=== PATIENT | female | born 1955 | race Caucasian/White ===

== ENCOUNTER → 2016-02-27 | Outpatient (CLI) | payer BC ==
--- NOTE | 2016-02-28 10:10 | MM ---
Reason for exam: screening (asymptomatic). Last mammogram was performed 1 year and 6 months ago. History: Patient is postmenopausal. Benign excisional biopsy of the right breast. Physical Findings: A clinical breast exam by your physician is recommended on an annual basis and results should be correlated with mammographic findings. MG 3D Screening Mammo W/Cad Bilateral CC and MLO view(s) were taken. Prior study comparison: August 15, 2014, bilateral MG screening mammo w CAD. July 13, 2012, bilateral digital screening mammo w/CAD. There are scattered fibroglandular densities. Finding: There are typically benign regional and grouped calcifications in both breasts. No significant changes in finding since August 15, 2014 and July 13, 2012. ASSESSMENT: Benign, BI-RAD 2 RECOMMENDATION: Routine screening mammogram of both breasts in 1 year.
== END | disposition home or self-care (01) ==
LOC: RADMAMWWP 10:22
PROVIDERS: ATTEND Family Medicine
DX: Z12.31 Encounter for screening mammogram for malignant neoplasm of breast (principal)
CPT/HCPCS: 77063; G0202

== ENCOUNTER → 2016-04-30 | Outpatient (CLI) | payer BC ==
[2016-05-01 12:02] LABS: Alternaria alternata IgE <0.35 kU/L (<0.35); Asperg. fumagatus IgE <0.35 kU/L (<0.35); Asperg. fumagatus IgE Class CLASS 0; Cat Epith & Dander IgE <0.35 kU/L (<0.35); Cat Epith & Dander IgE Class CLASS 0; Clad herbarum IgE <0.35 kU/L (<0.35); Clad herbarum IgE Class CLASS 0; Com. Pigweed IgE <0.35 kU/L (<0.35); Com. Pigweed IgE Class CLASS 0; Common Ragweed IgE Class CLASS 0; Cow's Milk IgE Class CLASS 0; Dermato. farinae IgE <0.35 kU/L (<0.35); Dermato. farinae IgE Class CLASS 0; House Dust (Greer) IgE <0.35 kU/L (<0.35); House Dust (Greer) IgE Class CLASS 0; Maple (Box Elder) IgE <0.35 kU/L (<0.35); Maple (Box Elder) IgE Class CLASS 0; Penicillium notatum IgE Class CLASS 0; Timothy Grass IgE <0.35 kU/L (<0.35); Timothy Grass IgE Class CLASS 0
[2016-05-05 22:27] LABS: Cladosporium herbarium IgG 95.1 mcg/mL (< 14.7); Phoma ssp. IgG 3.2 mcg/mL (< 6.6); Saccaharomospora viridis Not detected (Not detected); Saccaharopoly. rectivirgula Not detected (Not detected)
== END | disposition home or self-care (01) ==
LOC: LABWHC1 12:58
PROVIDERS: ATTEND Internal Medicine Sleep Medicine
DX: B44.89 Other forms of aspergillosis (principal)
CPT/HCPCS: 36415; 82785; 86001; 86003; 86606; 86609

== ENCOUNTER → 2016-06-29 | Outpatient (CLI) | payer BC ==
--- NOTE | 2016-06-29 17:25 | CTL ---
EXAMINATION TYPE: CT Low Dose Lung DATE OF EXAM ORDERED: 06/29/2016 1:35 PM HISTORY: Initial. Lung cancer screening CT DLP: 75.[address] CTDI: 2.2 mGy Automated exposure control for dose reduction was used. SCREENING VISIT: Initial COMPARISON: None TECHNIQUE: Low dose computed tomography scan was performed through the chest at 1 mm thick sections a nd reconstructed images in the coronal plane at [address] DIAGNOSTIC QUALITY: Satisfactory FINDINGS: LUNG NODULES: None. LUNGS: COPD: Severity: None Fibrosis: Severity: None Lymph nodes: None Other findings: None RIGHT PLEURAL SPACE: Effusion: None Calcification: None Thickening: None Pneumothorax: None LEFT PLEURAL SPACE: Effusion: None Calcification: None unremarkable Thickening: None Pneumothorax: None HEART: Heart Size: None Coronary calcification: None Pericardial effusion: None OTHER FINDINGS: Upper abdomen: LAP-BAND is present. Bony thorax: Normal Supraclavicular region: Unremarkable Other: Ascending thoracic aorta is estimated at 3.4 cm AP dimension at the level of the main pulmonar y artery. The main pulmonary artery is estimated 2.8 cm. IMPRESSION: No suspicious changes to suggest neoplasm FOLLOW UP CT CHEST RECOMMENDATION: Screening per protocol CT LUNG RAD: Lung-Rad 1 Negative
== END | disposition home or self-care (01) ==
LOC: RADCTMAIN 13:05
PROVIDERS: ATTEND Internal Medicine Sleep Medicine
DX: Z12.2 Encounter for screening for malignant neoplasm of respiratory organs (principal); F17.200 Nicotine dependence, unspecified, uncomplicated

== ENCOUNTER → 2017-08-18 | Outpatient (CLI) | payer BC ==
--- NOTE | 2017-08-19 15:17 | MM ---
Reason for exam: screening (asymptomatic). Last mammogram was performed 1 year and 6 months ago. History: Patient is postmenopausal. Benign excisional biopsy of the right breast. Physical Findings: A clinical breast exam by your physician is recommended on an annual basis and results should be correlated with mammographic findings. MG Screening Mammo w CAD Bilateral CC and MLO view(s) were taken. Technologist: Mary Alice Garcia RT (R)(M) Prior study comparison: February 27, 2016, bilateral MG 3d screening mammo w/cad. August 15, 2014, bilateral MG screening mammo w CAD. The breast tissue is heterogeneously dense. This may lower the sensitivity of mammography. Finding: There are typically benign dystrophic, round, diffuse/scattered and grouped calcifications in both breasts, greater in the right breast. There is no discrete abnormality. ASSESSMENT: Benign, BI-RAD 2 RECOMMENDATION: Routine screening mammogram of both breasts in 1 year.
== END | disposition home or self-care (01) ==
LOC: RADMAMWWP 08:37
PROVIDERS: ATTEND Family Medicine
DX: Z12.31 Encounter for screening mammogram for malignant neoplasm of breast (principal)
CPT/HCPCS: 77067

== ENCOUNTER → 2017-09-27 | Outpatient (CLI) | payer BC ==
[2017-09-27 15:52] VITALS: BP 107/72; PULSE 76; RESP 20; TEMP 97.8
--- NOTE | 2017-09-27 16:42 | P.HPBAR ---
Bariatric H&P - History & Physicial H&P Date: 09/27/17 History & Physicial: Visit/CC: wants a fill Patient initial contact: Initial weight: 86.409 kg Initial weight in pounds: 190.50 Height: 5 ft 6.75 in Initial BMI: 30.0 Last weight: Current weight: 86.409 kg Current weight in pounds: 190.50 Current BMI: 30.0 [place] body weight (based on NIH guidelines): 60.668 kg Excess body weight loss: 0.0% The patient is a 62 year-old F who presents for Bariatric Assessment. Patient presents today for lab band follow up. She's not been seen several years. The patient states that she has gained weight. She is requesting a fill. Past Medical History Past Medical History: Hyperlipidemia History of Any Multi-Drug Resistant Organisms: None Reported Past Surgical History: Bariatric Surgery, Section Additional Past Surgical History / Comment(s): lap band 2009 Past Anesthesia/Blood Transfusion Reactions: No Reported Reaction Smoking Status: Current every day smoker Surgical - Exam Vital Signs Temp Pulse Resp BP 97.8 F 76 20 107/72 09/27/17 15:46 09/27/17 15:46 09/27/17 15:46 09/27/17 15:46 - General well developed, well nourished - Abdomen Abdomen: soft, non tender Bariatric Assessment & Plan Plan: The patient's lap band was adjusted. She appeared to have no fluid in the band. She's not sure if she had fluid before. 4 mL was added to her band. She 'll follow-up in one month for recheck. She may have a small leak of her band system. Bariatric Checklist Checklist: Plan: Checklist: EGD: 1. Hiatal hernia: 2. H. Pylori: HgbA1c: Vitamin D: Smoking: Current every day smoker Primary care physician referral: Dr Browne Psychiatry clearance: Cardiology clearance: Sleep study: Diet journal: VTE risk score: VTE risk level: Rehab needs at discharge:
== END | disposition home or self-care (01) ==
LOC: BARWHC3 15:28
PROVIDERS: ATTEND Surgery
DX: Z48.815 Encounter for surgical aftercare following surgery on the digestive system (principal); F17.200 Nicotine dependence, unspecified, uncomplicated; Z98.84 Bariatric surgery status
CPT/HCPCS: 99202

== ENCOUNTER → 2017-10-04 | Outpatient (CLI) | payer BC ==
[2017-10-04 14:45] VITALS: BP 108/62; PULSE 84; RESP 16; TEMP 98.6; BMI 30.1
--- NOTE | 2017-10-04 15:18 | P.HPBAR ---
Bariatric H&P - History & Physicial H&P Date: 10/04/17 History & Physicial: Visit/CC: ck band Patient initial contact: Initial weight: 86.409 kg Initial weight in pounds: 190.50 Height: 5 ft 6.75 in Initial BMI: 30.0 Last weight: Current weight: 86.636 kg Current weight in pounds: 191.00 Current BMI: 30.1 [place] body weight (based on NIH guidelines): 60.668 kg Excess body weight loss: The patient is a 62 year-old F who presents for Bariatric Assessment. Patient presents today for lab band follow up. She had a fill at her last visit. She states that she has lost all her restriction. He is concerned she may have a malfunctioning LAP-BAND port. Past Medical History Past Medical History: Hyperlipidemia History of Any Multi-Drug Resistant Organisms: None Reported Past Surgical History: Bariatric Surgery, Section Additional Past Surgical History / Comment(s): lap band 2010 Past Anesthesia/Blood Transfusion Reactions: No Reported Reaction Smoking Status: Current every day smoker Surgical - Exam Vital Signs Temp Pulse Resp BP 98.6 F 84 16 108/62 10/04/17 14:35 10/04/17 14:35 10/04/17 14:35 10/04/17 14:35 - General well developed, no distress - Eyes PERRL - Abdomen Abdomen: soft, non tender Bariatric Assessment & Plan Plan: The patient LAP-BAND port was accessed. The patient had 3 mL of yellowish fluid within the port. The patient's LAP-BAND port has a definitely consistent. The patient was counseled on replacement of LAP-BAND port. She was also thinking about having a sleeve gastrectomy performed. The patient will follow-up in 2 weeks. Bariatric Checklist Checklist: Plan: Checklist: EGD: 1. Hiatal hernia: 2. H. Pylori: HgbA1c: Vitamin D: Smoking: Current every day smoker Primary care physician referral: Dr Browne Psychiatry clearance: Cardiology clearance: Sleep study: Diet journal: VTE risk score: VTE risk level: Rehab needs at discharge:
== END | disposition home or self-care (01) ==
LOC: BARWHC3 13:58
PROVIDERS: ATTEND Surgery
DX: Z09 Encounter for follow-up examination after completed treatment for conditions other than malignant neoplasm (principal); F17.200 Nicotine dependence, unspecified, uncomplicated; Z98.890 Other specified postprocedural states; Z98.84 Bariatric surgery status
CPT/HCPCS: 99211

== ENCOUNTER → 2017-12-24 | Outpatient (CLI) | payer BC ==
--- NOTE | 2017-12-24 10:55 | CTL ---
EXAMINATION TYPE: CT Low Dose Lung DATE OF EXAM ORDERED: 12/24/2017 COMPARISON: 06/29/2016 HISTORY: . Low Dose CT Lung Screening CT DLP: 101.[address] CTDI: 2.7 mGy IV CONTRAST USED: None. SCREENING VISIT: First visit COMPARISON: None. TECHNIQUE: Low dose computed tomography scan was performed through the chest at 1 millimeter thick se ctions and reconstructed images in the coronal plane at [address] DIAGNOSTIC QUALITY: Satisfactory FINDINGS: LUNG NODULES: Not presentLeft lung: no nodules identified.Right lung: no nodules identified. Calcifi ed granuloma right lower lobe. LUNGS: COPD: Severity: None Fibrosis: Severity:None Lymph nodes: None Other findings: None RIGHT PLEURAL SPACE: Effusion: None Calcification: None Thickening: None Pneumothorax: None LEFT PLEURAL SPACE: Effusion: None Calcification: None Thickening: None Pneumothorax: None HEART: Heart Size: Mildly enlarged Coronary calcification: Mild Pericardial effusion: None OTHER FINDINGS: Upper abdomen: No significant abnormality Bony thorax: Degenerative changes Supraclavicular region: No significant abnormalityOther: No significant abnormalityI IMPRESSION: Benign FOLLOW UP CT CHEST RECOMMENDATION: Follow-up screening in one year CT LUNG RAD: LUNG RAD CATEGORY negative category 1
== END | disposition home or self-care (01) ==
LOC: RADCTMAIN 10:25
PROVIDERS: ATTEND Internal Medicine Sleep Medicine
DX: Z12.2 Encounter for screening for malignant neoplasm of respiratory organs (principal); Z87.891 Personal history of nicotine dependence

== ENCOUNTER → 2018-03-28 | Outpatient (CLI) | payer BC ==
[2018-03-28 16:09] VITALS: BP 113/78; PULSE 76; TEMP 98.2; BMI 31.3
--- NOTE | 2018-04-04 16:03 | P.HPBAR ---
Bariatric H&P - History & Physicial H&P Date: 03/28/18 History & Physicial: Visit/CC: presurgical visit Patient initial contact: Initial weight: 86.409 kg Initial weight in pounds: 190.50 Height: 5 ft 6.75 in Initial BMI: 30.0 Last weight: Current weight: 89.993 kg Current weight in pounds: 198.40 Current BMI: 31.3 [place] body weight (based on NIH guidelines): 60.668 kg Excess body weight loss: The patient is a 62 year-old F who presents for Bariatric Assessment. Patient presents today for follow-up. She has a malfunctioning LAP-BAND port. She has finally been approved for replacement of her LAP-BAND port. Past Medical History Past Medical History: Hyperlipidemia Additional Past Medical History / Comment(s): HAS LEAK IN LAPBAND-SEEN BY JASON History of Any Multi-Drug Resistant Organisms: None Reported Past Surgical History: Bariatric Surgery, Section Additional Past Surgical History / Comment(s): lap band 2009. COLONOSCOPY. EGD. C-SEC X 2 Past Anesthesia/Blood Transfusion Reactions: No Reported Reaction Past Psychological History: Anxiety, Depression Smoking Status: Current every day smoker Past Alcohol Use History: Rare Additional Past Alcohol Use History / Comment(s): 1/2 pack per day-SINCE AGE 17- QUIT FOR 9 YEARS THEN STARTED UP AGAIN Past Drug Use History: None Reported - Past Family History Mother Family Medical History: Cancer Additional Family Medical History / Comment(s): LUNG AND STOMACH Surgical - Exam Vital Signs Temp Pulse BP 98.2 F 76 113/78 03/28/18 16:06 03/28/18 16:06 03/28/18 16:06 - General well developed, well nourished, no distress - Eyes PERRL - ENT normal pinna - Neck no masses - Respiratory normal expansion - Cardiovascular Rhythm: regular - Abdomen Abdomen: soft, non tender Bariatric Assessment & Plan Plan: LAP-BAND port malfunction. Patient was scheduled for laparoscopic replacement of LAP-BAND port. Bariatric Checklist Checklist: Plan: Checklist: EGD: 1. Hiatal hernia: 2. H. Pylori: HgbA1c: Vitamin D: Smoking: Current every day smoker Primary care physician referral: Dr Browne Psychiatry clearance: Cardiology clearance: Sleep study: Diet journal: VTE risk score: VTE risk level: Rehab needs at discharge:
== END ==
LOC: BARWHC3 14:38
PROVIDERS: ATTEND Surgery
DX: Z48.815 Encounter for surgical aftercare following surgery on the digestive system (principal); F17.200 Nicotine dependence, unspecified, uncomplicated; Z98.84 Bariatric surgery status
CPT/HCPCS: 99211

== ENCOUNTER → 2018-04-05 | Outpatient (CLI) | payer BC ==
[2018-04-05 13:46] LABS: Basophils # (A) 0.1 k/uL (0-0.2); Basophils % (A) 1 %; Eosinophils # (A) 0.2 k/uL (0-0.7); Eosinophils % (A) 2 %; HCT 44.9 % (34.0-46.0); HGB 14.3 gm/dL (11.4-16.0); Lymphocytes # (A) 2.7 k/uL (1.0-4.8); Lymphocytes % (A) 31 %; MCH 30.9 pg (25.0-35.0); MCHC 31.9 g/dL (31.0-37.0); MCV 97.1 fL (80.0-100.0); Mean Platelet Volume 6.6; Monocytes # (A) 0.5 k/uL (0-1.0); Monocytes % (A) 5 %; Neutrophils # (A) 5.1 k/uL (1.3-7.7); Neutrophils % (A) 59 %; Platelet Count 339 k/uL (150-450); RBC 4.62 m/uL (3.80-5.40); RDW 12.8 % (11.5-15.5); WBC 8.6 k/uL (3.8-10.6)
[2018-04-05 13:59] LABS: ALT 83 U/L (9-52); AST 59 U/L (14-36); Alkaline Phosphatase 84 U/L (38-126); Anion Gap 6 mmol/L; Blood Urea Nitrogen 11 mg/dL (7-17); Calcium 9.4 mg/dL (8.4-10.2); Carbon Dioxide 28 mmol/L (22-30); Chloride 105 mmol/L (98-107); Glucose 91 mg/dL (74-99); Sodium 139 mmol/L (137-145); Total Bilirubin 0.6 mg/dL (0.2-1.3); Total Protein 7.1 g/dL (6.3-8.2)
== END | disposition home or self-care (01) ==
LOC: LABPAT 12:48
PROVIDERS: ATTEND Surgery
DX: Z01.818 Encounter for other preprocedural examination (principal); Z01.812 Encounter for preprocedural laboratory examination
CPT/HCPCS: 80053; 85025; 93005

== ENCOUNTER 2018-04-08 09:22 | Day surgery (SDC) | payer BC ==
[2018-04-05 11:49] VITALS: BMI 30.7
[~2018-04-08 09:22] MED LIST: DEXAMETHASONE SOD PHOSPHATE 10 MG/ML 1 ML VIAL IV ONE; LACTATED RINGERS 1,000 ML IV SCH; MIDAZOLAM (PF) 2 MG/2 ML VIAL IV PRN; ONDANSETRON 4 MG/2 ML VIAL IVP ONE; SCOPOLAMINE 1.5MG/72HR PATCH TRANSDERM ONE; ceFAZolin IN SWFI 2 GM/20 ML SYRINGE IVP ONE
[2018-04-08] MEDS ORDERED: LACTATED RINGERS 1,000 ML IV ONE ×3 (09:45→15:18)
[2018-04-08] MEDS ORDERED: LIDOCAINE 1% 20 ML VIAL (10MG/ML) FOR IV START INTRADERMA ONE (09:46)
[2018-04-08] MEDS ORDERED: HEPARIN SODIUM,PORCINE 5,000 UNIT/ML 1 ML VIAL SQ ONE (09:46)
--- NOTE | 2018-04-08 10:57 | P.GSHP ---
History of Present Illness H&P Date: 04/08/18 Chief Complaint: LAP-BAND port malfunction This is a 62-year-old female who was recently diagnosed with LAP-BAND port malfunction. Patient presents today for laparoscopic removal and replacement of LAP-BAND port. Past Medical History Past Medical History: Hyperlipidemia Additional Past Medical History / Comment(s): HAS LEAK IN LAPBAND-SEEN BY JASON History of Any Multi-Drug Resistant Organisms: None Reported Past Surgical History: Bariatric Surgery, Section Additional Past Surgical History / Comment(s): lap band 2010. COLONOSCOPY. EGD. C-SEC X 2 Past Anesthesia/Blood Transfusion Reactions: No Reported Reaction Smoking Status: Current every day smoker - Past Family History Mother Family Medical History: Cancer Additional Family Medical History / Comment(s): LUNG AND STOMACH Medications and Allergies Home Medications Medication Instructions Recorded Confirmed Type ALPRAZolam [Xanax] 0.25 mg PO DAILY PRN 09/27/17 04/05/18 History Beclomethasone Dipropionate [Qvar 2 puff INHALATION BID 03/29/18 04/05/18 History 40 mcg Redihaler] Montelukast [Singulair] 10 mg PO HS 03/29/18 04/05/18 History Progesterone, Micronized 100 mg PO DAILY 03/29/18 04/05/18 History [Progesterone] Venlafaxine HCl [Effexor] 75 mg PO DAILY 03/29/18 04/05/18 History Allergies Allergy/AdvReac Type Severity Reaction Status Date / Time No Known Allergies Allergy Verified 04/05/18 11:43 Surgical - Exam Vital Signs Temp Pulse Resp BP Pulse Ox 97.8 F 79 18 117/68 95 04/08/18 09:36 04/08/18 09:36 04/08/18 09:36 04/08/18 09:36 04/08/18 09:36 - General well developed, no distress - Eyes PERRL - ENT normal pinna - Neck no masses - Respiratory normal expansion - Cardiovascular Rhythm: regular - Abdomen Abdomen: soft, non tender Assessment and Plan Assessment: LAP-BAND port malfunction. We'll perform laparoscopic removal and replacement of LAP-BAND port
[2018-04-08] MEDS ORDERED: NEOSTIGMINE 1 MG/ML 10 ML VIAL ONE (11:27)
[2018-04-08] MEDS ORDERED: ePHEDrine SULFATE/0.9% NACL/PF 50 MG/5 ML SYRINGE IV ONE (11:27)
[2018-04-08] MEDS ORDERED: MIDAZOLAM 2 MG/2 ML VIAL ONE (11:27)
[2018-04-08] MEDS ORDERED: fentaNYL (PF) 50 MCG/ML 2 ML AMP ONE (11:27)
[2018-04-08] MEDS ORDERED: PROPOFOL 10 MG/ML 20 ML VIAL IV ONE (11:27)
[2018-04-08] MEDS ORDERED: ROCURONIUM BROMIDE 10 MG/ML 10 ML VIAL IV ONE (11:27)
[2018-04-08] MEDS ORDERED: KETOROLAC 30 MG/ML 1 ML VIAL ONE (11:27)
[2018-04-08] MEDS ORDERED: GLYCOPYRROLATE 0.2 MG/ML 2 ML VIAL ONE (11:27)
[2018-04-08] MEDS ORDERED: SUCCINYLCHOLINE CHLORIDE VIAL 200 MG/10 ML VIAL IV ONE (11:27)
[2018-04-08] MEDS ORDERED: BUPIVACAIN-EPI 0.5%-1:200,000 30 ML VIAL SQ ONE (11:54)
[2018-04-08 12:33] VITALS: TEMP 97.6
[2018-04-08] MEDS: HYDROmorphone 0.5 MG/0.5 ML SYRINGE IVP PRN ×2 (12:41→12:50)
[2018-04-08 12:44] VITALS: RESP 16
--- NOTE | 2018-04-08 14:01 | P.OP ---
Date of Procedure: 04/08/18 Preoperative Diagnosis: LAP-BAND port malfunction Postoperative Diagnosis: LAP-BAND port malfunction Procedure(s) Performed: Laparoscopic removal and replacement of LAP-BAND port Anesthesia: KESHAWN Surgeon: kSy Vasquez Estimated Blood Loss (ml): 5 Pathology: other Condition: stable Disposition: PACU Description of Procedure: The patient's placed on the operating table in the supine position. She received general anesthesia. Her abdomen was prepped and draped usual sterile fashion. The skin was incised the LAP-BAND port site and then using electrocautery and blunt and sharp dissection the LAP-BAND port was dissected free from some taste tissues. The PEG tube was then cut. The LAP-BAND port appeared to have erosion on the port tubing. This point a 5 mm operative trocar is placed into the peritoneal cavity under direct visualization. The abdomen was insufflated. After adequate insufflation another 5 mm trochars placed in the left lateral position and a 10 mm trochars placed in the epigastric position. The LAP-BAND PEG tube was then brought out through the 10 mm trocar site. The trochars withdrawn. The new LAP-BAND port was connected to the PEG tube and then the port was secured to the fascia using 0 Nurolon sutures. The LAP-BAND port was then flushed and then 2 mL of normal saline placed the port. The skin was then closed interrupted 3-0 Monocryl suture. Dermabond was applied. Patient top procedure well and patient went to recovery in stable condition.
[2018-04-08] MEDS ORDERED: HYDROcodone/APAP 7.5-325MG 1 EACH TAB PO ONE (14:04)
[2018-04-08 15:17] VITALS: BP 126/74; PULSE 72
== END 2018-04-08 15:23 | disposition home or self-care (01) ==
LOC: OR 09:22
PROVIDERS: ATTEND Surgery
DX: T85.638A Leakage of other specified internal prosthetic devices, implants and grafts, initial encounter (principal); E78.5 Hyperlipidemia, unspecified; J44.9 Chronic obstructive pulmonary disease, unspecified; F17.200 Nicotine dependence, unspecified, uncomplicated; F39 Unspecified mood [affective] disorder; Z79.51 Long term (current) use of inhaled steroids; Z79.899 Other long term (current) drug therapy; Z79.890 Hormone replacement therapy
CPT/HCPCS: 43659; C1751; J2250; J0330; J1644; J1100; J2710; J2405; J3010; J1885; J2704; J1170; J0690

== ENCOUNTER → 2018-04-18 | Outpatient (CLI) | payer BC ==
[2018-04-18 13:30] VITALS: BP 123/79; PULSE 89; RESP 16; TEMP 97.1; BMI 31.7
--- NOTE | 2018-05-06 11:12 | P.HPBAR ---
Bariatric H&P - History & Physicial H&P Date: 04/18/18 History & Physicial: Visit/CC: lap band f/u Patient initial contact: Initial weight: 86.409 kg Initial weight in pounds: 190.50 Height: 5 ft 6.75 in Initial BMI: 30.0 Last weight: Current weight: 91.172 kg Current weight in pounds: 201.00 Current BMI: 31.7 [place] body weight (based on NIH guidelines): 60.668 kg Excess body weight loss: The patient is a 62 year-old F who presents for Bariatric Assessment. Patient presents today for follow-up. She is status post removal and replacement of LAP-BAND port. She has some minimal complaints of incisional pain. Past Medical History Past Medical History: Hyperlipidemia Additional Past Medical History / Comment(s): HAS LEAK IN LAPBAND-SEEN BY JASON History of Any Multi-Drug Resistant Organisms: None Reported Past Surgical History: Bariatric Surgery, Section Additional Past Surgical History / Comment(s): lap band 2009. COLONOSCOPY. EGD. C-SEC X 2 Past Anesthesia/Blood Transfusion Reactions: No Reported Reaction Past Psychological History: Anxiety, Depression Smoking Status: Current every day smoker Past Alcohol Use History: Rare Additional Past Alcohol Use History / Comment(s): 1/2 pack per day-SINCE AGE 17- QUIT FOR 9 YEARS THEN STARTED UP AGAIN Past Drug Use History: None Reported - Past Family History Mother Family Medical History: Cancer Additional Family Medical History / Comment(s): LUNG AND STOMACH Surgical - Exam Vital Signs Temp Pulse Resp BP Pulse Ox 97.1 F L 89 16 123/79 100 04/18/18 13:28 04/18/18 13:28 04/18/18 13:28 04/18/18 13:28 04/18/18 13:28 - General well developed, well nourished, no distress - Eyes PERRL - Abdomen Incision site is clean dry and intact. Abdomen: soft, non tender Bariatric Assessment & Plan Plan: Status post removal and replacement of LAP-BAND port. Patient will follow-up in 2 weeks. Bariatric Checklist Checklist: Plan: Checklist: EGD: 1. Hiatal hernia: 2. H. Pylori: HgbA1c: Vitamin D: Smoking: Current every day smoker Primary care physician referral: Dr Browne Psychiatry clearance: Cardiology clearance: Sleep study: Diet journal: VTE risk score: VTE risk level: Rehab needs at discharge:
== END | disposition home or self-care (01) ==
LOC: BARWHC3 13:23
PROVIDERS: ATTEND Surgery
DX: Z48.815 Encounter for surgical aftercare following surgery on the digestive system (principal); F17.200 Nicotine dependence, unspecified, uncomplicated; Z98.84 Bariatric surgery status
CPT/HCPCS: 99211

== ENCOUNTER → 2018-05-02 | Outpatient (CLI) | payer BC ==
[2018-05-02 15:05] VITALS: BP 124/72; PULSE 81; TEMP 97.9; BMI 31.4
--- NOTE | 2018-05-06 11:46 | P.HPBAR ---
Bariatric H&P - History & Physicial H&P Date: 05/02/18 History & Physicial: Visit/CC: lap band follow up Patient initial contact: Initial weight: 86.409 kg Initial weight in pounds: 190.50 Height: 5 ft 6.75 in Initial BMI: 30.0 Last weight: Current weight: 90.265 kg Current weight in pounds: 199.00 Current BMI: 31.4 [place] body weight (based on NIH guidelines): 60.668 kg Excess body weight loss: The patient is a 62 year-old F who presents for Bariatric Assessment. Patient presents today for her LAP-BAND port adjustment. She is currently hungry requesting a fill. Past Medical History Past Medical History: Hyperlipidemia Additional Past Medical History / Comment(s): HAS LEAK IN LAPBAND-SEEN BY JASON History of Any Multi-Drug Resistant Organisms: None Reported Past Surgical History: Bariatric Surgery, Section Additional Past Surgical History / Comment(s): lap band 2009. COLONOSCOPY. EGD. C-SEC X 2 Past Anesthesia/Blood Transfusion Reactions: No Reported Reaction Past Psychological History: Anxiety, Depression Smoking Status: Current every day smoker Past Alcohol Use History: Rare Additional Past Alcohol Use History / Comment(s): 1/2 pack per day-SINCE AGE 17- QUIT FOR 9 YEARS THEN STARTED UP AGAIN Past Drug Use History: None Reported - Past Family History Mother Family Medical History: Cancer Additional Family Medical History / Comment(s): LUNG AND STOMACH Surgical - Exam Vital Signs Temp Pulse BP 97.9 F 81 124/72 05/02/18 14:52 05/02/18 14:52 05/02/18 14:52 - General well developed, well nourished - Abdomen Abdomen: soft, non tender Bariatric Assessment & Plan Plan: Patient LAP-BAND was just. She had 4 mL placed in the band. She is able to drink water without difficulty. She'll follow-up in one month. Bariatric Checklist Checklist: Plan: Checklist: EGD: 1. Hiatal hernia: 2. H. Pylori: HgbA1c: Vitamin D: Smoking: Current every day smoker Primary care physician referral: Dr Browne Psychiatry clearance: Cardiology clearance: Sleep study: Diet journal: VTE risk score: VTE risk level: Rehab needs at discharge:
== END ==
LOC: BARWHC3 12:56
PROVIDERS: ATTEND Surgery
DX: Z48.815 Encounter for surgical aftercare following surgery on the digestive system (principal); F17.200 Nicotine dependence, unspecified, uncomplicated; Z98.84 Bariatric surgery status
CPT/HCPCS: 99212

== ENCOUNTER → 2018-06-13 | Outpatient (CLI) | payer BC ==
[2018-06-13 13:17] VITALS: BP 125/73; PULSE 84; RESP 16; TEMP 97.9; BMI 32.0
--- NOTE | 2018-06-13 16:29 | P.HPBAR ---
Bariatric H&P - History & Physicial H&P Date: 06/13/18 History & Physicial: Visit/CC: band adj Patient initial contact: Initial weight: 86.409 kg Initial weight in pounds: 190.50 Height: 5 ft 6.75 in Initial BMI: 30.0 Last weight: Current weight: 92.079 kg Current weight in pounds: 203.00 Current BMI: 32.0 [place] body weight (based on NIH guidelines): 60.668 kg Excess body weight loss: The patient is a 62 year-old F who presents for Bariatric Assessment. Patient presents today for lab band adjustment. She currently feels hungry. Past Medical History Past Medical History: Hyperlipidemia Additional Past Medical History / Comment(s): HAS LEAK IN LAPBAND-SEEN BY JASON History of Any Multi-Drug Resistant Organisms: None Reported Past Surgical History: Bariatric Surgery, Section Additional Past Surgical History / Comment(s): lap band 2009. COLONOSCOPY. EGD. C-SEC X 2 Past Anesthesia/Blood Transfusion Reactions: No Reported Reaction Smoking Status: Current every day smoker - Past Family History Mother Family Medical History: Cancer Additional Family Medical History / Comment(s): LUNG AND STOMACH Surgical - Exam Vital Signs Temp Pulse Resp BP 97.9 F 84 16 125/73 06/13/18 13:15 06/13/18 13:15 06/13/18 13:15 06/13/18 13:15 - General well developed, no distress - Abdomen Abdomen: soft, non tender Bariatric Assessment & Plan Plan: Patient LAP-BAND was adjusted. She had 1-1/2 mL added to her band. She currently has 4.5 mL in the band. She'll follow-up in 4 weeks. Bariatric Checklist Checklist: Plan: Checklist: EGD: 1. Hiatal hernia: 2. H. Pylori: HgbA1c: Vitamin D: Smoking: Current every day smoker Primary care physician referral: Dr Browne Psychiatry clearance: Cardiology clearance: Sleep study: Diet journal: VTE risk score: VTE risk level: Rehab needs at discharge:
== END | disposition home or self-care (01) ==
LOC: BARWHC3 12:53
PROVIDERS: ATTEND Surgery
DX: Z46.51 Encounter for fitting and adjustment of gastric lap band (principal); Z98.84 Bariatric surgery status
CPT/HCPCS: 99212

== ENCOUNTER → 2018-06-15 | Outpatient (CLI) | payer BC ==
--- NOTE | 2018-06-15 09:45 | P.HPBAR ---
Bariatric H&P - History & Physicial H&P Date: 06/15/18 History & Physicial: Visit/CC: Patient initial contact: Initial weight: 86.409 kg Initial weight in pounds: Height: Initial BMI: Last weight: Current weight: Current weight in pounds: Current BMI: [place] body weight (based on NIH guidelines): Excess body weight loss: The patient is a 62 year-old F who presents for Bariatric Assessment. Patient presents today for her LAP-BAND adjustment. She had a fill performed several days ago. She's had vomiting last 24 hours. Past Medical History Past Medical History: Hyperlipidemia Additional Past Medical History / Comment(s): HAS LEAK IN LAPBAND-SEEN BY JASON History of Any Multi-Drug Resistant Organisms: None Reported Past Surgical History: Bariatric Surgery, Section Additional Past Surgical History / Comment(s): lap band 2010. COLONOSCOPY. EGD. C-SEC X 2 Past Anesthesia/Blood Transfusion Reactions: No Reported Reaction Smoking Status: Current every day smoker - Past Family History Mother Family Medical History: Cancer Additional Family Medical History / Comment(s): LUNG AND STOMACH Surgical - Exam - General well developed, well nourished, no distress - Eyes PERRL - ENT normal pinna - Abdomen Abdomen: soft, non tender Bariatric Assessment & Plan Plan: Dysphagia related to her LAP-BAND. Patient LAP-BAND and fluid removed. She had 2 mL removed. She currently has 3 mL in the band. Bariatric Checklist Checklist: Plan: Checklist: EGD: 1. Hiatal hernia: 2. H. Pylori: HgbA1c: Vitamin D: Smoking: Current every day smoker Primary care physician referral: Dr Browne Psychiatry clearance: Cardiology clearance: Sleep study: Diet journal: VTE risk score: VTE risk level: Rehab needs at discharge:
[2018-06-15 10:44] VITALS: BP 132/77; PULSE 108; RESP 16; TEMP 98; BMI 30.9
== END | disposition home or self-care (01) ==
LOC: BARWHC3 09:26
PROVIDERS: ATTEND Surgery
DX: Z46.51 Encounter for fitting and adjustment of gastric lap band (principal); R13.10 Dysphagia, unspecified; E78.5 Hyperlipidemia, unspecified; F17.200 Nicotine dependence, unspecified, uncomplicated; Z98.84 Bariatric surgery status
CPT/HCPCS: 99212

== ENCOUNTER → 2018-06-27 | Outpatient (CLI) | payer BC ==
[2018-06-27 15:19] VITALS: BP 110/73; PULSE 86; TEMP 98.3; BMI 31.8
--- NOTE | 2018-07-11 14:19 | P.HPBAR ---
Bariatric H&P - History & Physicial H&P Date: 06/27/18 History & Physicial: Visit/CC: lap band follow up Patient initial contact: Initial weight: 86.409 kg Initial weight in pounds: 190.50 Height: 5 ft 6.75 in Initial BMI: 30.0 Last weight: Current weight: 91.626 kg Current weight in pounds: 202.00 Current BMI: 31.8 [place] body weight (based on NIH guidelines): 60.668 kg Excess body weight loss: The patient is a 62 year-old F who presents for Bariatric Assessment. Patient presents today for LAP-BAND adjustment. She currently feels hungry. Past Medical History Past Medical History: Hyperlipidemia Additional Past Medical History / Comment(s): HAS LEAK IN LAPBAND-SEEN BY JASON History of Any Multi-Drug Resistant Organisms: None Reported Past Surgical History: Bariatric Surgery, Section Additional Past Surgical History / Comment(s): lap band 2009. COLONOSCOPY. EGD. C-SEC X 2 Past Anesthesia/Blood Transfusion Reactions: No Reported Reaction Past Psychological History: Anxiety, Depression Smoking Status: Current every day smoker Past Alcohol Use History: Rare Additional Past Alcohol Use History / Comment(s): 1/2 pack per day-SINCE AGE 17- QUIT FOR 9 YEARS THEN STARTED UP AGAIN Past Drug Use History: None Reported - Past Family History Mother Family Medical History: Cancer Additional Family Medical History / Comment(s): LUNG AND STOMACH Surgical - Exam Vital Signs Temp Pulse BP 98.3 F 86 110/73 06/27/18 15:17 06/27/18 15:17 06/27/18 15:17 - General well developed, well nourished, no distress - Eyes PERRL - ENT normal pinna - Abdomen Abdomen: soft, non tender Bariatric Assessment & Plan Plan: Patient's lap band was adjusted. She had 2 mL added to her band. She currently has 3 mL in the band. She'll follow-up in one month. Bariatric Checklist Checklist: Plan: Checklist: EGD: 1. Hiatal hernia: 2. H. Pylori: HgbA1c: Vitamin D: Smoking: Current every day smoker Primary care physician referral: Dr Browne Psychiatry clearance: Cardiology clearance: Sleep study: Diet journal: VTE risk score: VTE risk level: Rehab needs at discharge:
== END | disposition home or self-care (01) ==
LOC: BARWHC3 14:20
PROVIDERS: ATTEND Surgery
DX: Z46.51 Encounter for fitting and adjustment of gastric lap band (principal); F17.210 Nicotine dependence, cigarettes, uncomplicated
CPT/HCPCS: 99212

== ENCOUNTER → 2018-07-25 | Outpatient (CLI) | payer BC ==
[2018-07-25 13:43] VITALS: BP 117/76; PULSE 91; TEMP 97.8; BMI 31.8
--- NOTE | 2018-07-25 16:17 | P.HPBAR ---
Bariatric H&P - History & Physicial H&P Date: 07/25/18 History & Physicial: Visit/CC: lap band follow up Patient initial contact: Initial weight: 86.409 kg Initial weight in pounds: 190.50 Height: 5 ft 6.75 in Initial BMI: 30.0 Last weight: Current weight: 91.626 kg Current weight in pounds: 202.00 Current BMI: 31.8 [place] body weight (based on NIH guidelines): 60.668 kg Excess body weight loss: The patient is a 62 year-old F who presents for Bariatric Assessment. Patient presents today for lab band follow up. She states she feels no restriction. She is requesting a fill. Past Medical History Past Medical History: Hyperlipidemia Additional Past Medical History / Comment(s): HAS LEAK IN LAPBAND-SEEN BY JASON History of Any Multi-Drug Resistant Organisms: None Reported Past Surgical History: Bariatric Surgery, Section Additional Past Surgical History / Comment(s): lap band 2009. COLONOSCOPY. EGD. C-SEC X 2 Past Anesthesia/Blood Transfusion Reactions: No Reported Reaction Smoking Status: Current every day smoker - Past Family History Mother Family Medical History: Cancer Additional Family Medical History / Comment(s): LUNG AND STOMACH Surgical - Exam Vital Signs Temp Pulse BP 97.8 F 91 117/76 07/25/18 13:40 07/25/18 13:40 07/25/18 13:40 - General well developed, well nourished, no distress - Eyes PERRL - ENT normal pinna - Abdomen Abdomen: soft, non tender Bariatric Assessment & Plan Plan: Patient's lap band was adjusted. She had 1 mL added to her band. She can is 5 mL in the band. She'll follow-up in 4 weeks. Bariatric Checklist Checklist: Plan: Checklist: EGD: 1. Hiatal hernia: 2. H. Pylori: HgbA1c: Vitamin D: Smoking: Current every day smoker Primary care physician referral: Dr Browne Psychiatry clearance: Cardiology clearance: Sleep study: Diet journal: VTE risk score: VTE risk level: Rehab needs at discharge:
== END | disposition home or self-care (01) ==
LOC: BARWHC3 13:12
PROVIDERS: ATTEND Surgery
DX: Z46.51 Encounter for fitting and adjustment of gastric lap band (principal); E78.5 Hyperlipidemia, unspecified; F17.200 Nicotine dependence, unspecified, uncomplicated; Z98.84 Bariatric surgery status; Z98.890 Other specified postprocedural states
CPT/HCPCS: 99212

== ENCOUNTER → 2019-01-25 | Outpatient (CLI) | payer MEDICARE ==
--- NOTE | 2019-01-25 23:23 | CTL ---
EXAMINATION TYPE: CT Low Dose Lung DATE OF EXAM ORDERED: 01/25/2019 HISTORY: Long-term tobacco use. Lung cancer screening CT DLP: 100.[address] CTDI: 2.8 mGy Automated exposure control for dose reduction was used. SCREENING VISIT: Third study COMPARISON: Prior studies December 24, 2017 and TECHNIQUE: Low dose computed tomography scan was performed through the chest at 1 mm thick sections a nd reconstructed images in the coronal plane at [address] DIAGNOSTIC QUALITY: Satisfactory FINDINGS: LUNG NODULES: None. None of significance measuring greater than 4 mm. Few scattered small calcified nodules for reference Stable small calcified granuloma right upper lobe axial image 115. A few scattered small nodules red emonstrated. For reference, There is 3 mm scarlike opacity right upper lobe anterolaterally axial izaiah ge 135. This in retrospect was present on prior study. LUNGS: COPD: Severity: Mild to moderate Fibrosis: Severity: None Lymph nodes: None Other findings: None BILATERAL PLEURAL SPACE: Effusion: None Calcification: None Thickening: None Pneumothorax: None HEART: Heart Size: Upper limits of normal Coronary calcification: None Pericardial effusion: None OTHER FINDINGS: Upper abdomen: Lab band device epigastric region stable in position. Bony thorax: Some multilevel mild to moderate spurring in the spine. Supraclavicular region: Somewhat small size thyroid redemonstrated. Other: Mild to moderate dilatation and fluid along with some debris along course of the esophagus mor e prominent from prior should be correlated clinically. IMPRESSION: No suspicious new or enlarging greater than 4 mm noncalcified nodules. FOLLOW UP CT CHEST RECOMMENDATION: Annual low-dose lung screening CT CT LUNG RAD: Lung-Rad 2 Benign Appearance or Behavior
== END | disposition home or self-care (01) ==
LOC: RADCTMAIN 16:06
PROVIDERS: ATTEND Internal Medicine Sleep Medicine
DX: F17.210 Nicotine dependence, cigarettes, uncomplicated (principal)

== ENCOUNTER → 2019-02-23 | Outpatient (CLI) | payer MEDICARE ==
--- NOTE | 2019-02-27 09:05 | MM ---
Reason for exam: screening (asymptomatic). Last mammogram was performed 1 year and 6 months ago. History: Patient is postmenopausal. Benign excisional biopsy of the right breast. Physical Findings: A clinical breast exam by your physician is recommended on an annual basis and results should be correlated with mammographic findings. MG 3D Screening Mammo W/Cad Bilateral CC and MLO view(s) were taken. Prior study comparison: August 18, 2017, bilateral MG screening mammo w CAD. February 27, 2016, bilateral MG 3d screening mammo w/cad. The breast tissue is heterogeneously dense. This may lower the sensitivity of mammography. Finding: There is a high density, indistinct oval mass located 6 cm from the nipple in the right breast upper MLO. Focal asymmetry left lower MLO 6cm from the nipple. New finding since August 18, 2017 and February 27, 2016. ASSESSMENT: Incomplete: need additional imaging evaluation, BI-RAD 0 RECOMMENDATION: Special view mammogram of both breasts. If lesion persists on supplemental views, image directed ultrasound is recommended. [facility] will attempt to contact patient to return for supplemental views and ultrasound if indicated.
== END | disposition home or self-care (01) ==
LOC: RADMAMWWP 16:19
PROVIDERS: ATTEND Family Medicine
DX: Z12.31 Encounter for screening mammogram for malignant neoplasm of breast (principal)
CPT/HCPCS: 77063; 77067

== ENCOUNTER → 2019-03-07 | Outpatient (CLI) | payer MEDICARE ==
--- NOTE | 2019-03-08 09:23 | MM ---
Reason for exam: additional evaluation requested from abnormal screening. Last mammogram was performed less than 1 month ago. History: Patient is postmenopausal. Benign excisional biopsy of the right breast. Taking progesterone beginning at age 61. Physical Findings: Nurse did not find any significant physical abnormalities on exam. MG 3D Work Up W/Cad GWENDOLYN Bilateral spot compression CC and ML view(s) were taken. Spot compression MLO view(s) were taken of the right breast. Prior study comparison: February 23, 2019, bilateral MG 3d screening mammo w/cad. August 18, 2017, bilateral MG screening mammo w CAD. The breast tissue is heterogeneously dense. This may lower the sensitivity of mammography. The previously seen abnormality resolves on additional views and appears as fibroglandular tissue compatible with summation on the right breast. Left 6mm lower inner quadrant mass persists 6cm from nipple. These results were verbally communicated with the patient and result sheet given to the patient on 03/07/19. ASSESSMENT: Incomplete: need additional imaging evaluation, BI-RAD 0 RECOMMENDATION: Ultrasound of the left breast. (lower inner quadrant)
--- NOTE | 2019-03-08 09:25 | USB ---
Reason for exam: additional evaluation requested from abnormal screening. History: Patient is postmenopausal. Benign excisional biopsy of the right breast. Taking progesterone beginning at age 61. US Breast Workup Limited LT Left limited breast ultrasound including focal area of concern, retroareolar and axilla demonstrates a 0.3 x 0.2 x 0.2cm oval, cystic lesion at 9 o'clock, a 0.4 x 0.5 x 0.3cm oval, cystic cluster at 10 o'clock, duct ectasia at the posterior nipple and a 1.4 x 1.6 x 0.6cm lymph node at the axilla. These results were verbally communicated with the patient and result sheet given to the patient on 03/07/19. ASSESSMENT: Benign, BI-RAD 2 RECOMMENDATION: Return to routine screening mammogram schedule for both breasts.
== END | disposition home or self-care (01) ==
LOC: RADMAMWWP 13:25
PROVIDERS: ATTEND Family Medicine
DX: R92.8 Other abnormal and inconclusive findings on diagnostic imaging of breast (principal)
CPT/HCPCS: 77066; 76642; G0279; 77062

== ENCOUNTER → 2019-09-15 | Outpatient (CLI) | payer MEDICARE ==
--- NOTE | 2019-09-15 13:05 | FL ---
EXAMINATION TYPE: FL barium swallow DATE OF EXAM: 09/15/2019 CLINICAL HISTORY: Dysphasia TECHNIQUE: A double contrast esophagram is performed utilizing air and barium. A total of 33 second s of fluoroscopic time was utilized during procedure. 14 images submitted COMPARISON: 05/24/2009 FINDINGS: There is mild delay at the level of the lap band. There was complete passes of contrast int o the stomach. No evidence of extravasation. Small pouch noted. IMPRESSION: Mild delay at the level of the lap band. Contrast did demonstrate complete passage into t he stomach.
== END | disposition home or self-care (01) ==
LOC: RADUSWWP 10:52
PROVIDERS: ATTEND Family Medicine
DX: R47.02 Dysphasia (principal); R00.0 Tachycardia, unspecified
CPT/HCPCS: 74220; 93005

== ENCOUNTER → 2019-10-30 | Outpatient (CLI) | payer MEDICARE ==
--- NOTE | 2019-10-30 14:34 | P.HPBAR ---
Bariatric H&P - History & Physicial H&P Date: 10/30/19 History & Physicial: Visit/CC: Patient initial contact: Initial weight: 86.409 kg Initial weight in pounds: Height: Initial BMI: Last weight: Current weight: Current weight in pounds: Current BMI: [place] body weight (based on NIH guidelines): Excess body weight loss: The patient is a 64 year-old F who presents for Bariatric Assessment. Patient rents today for lab band follow up. She has complaints of some intermittent nausea and vomiting. Her recent esophagram shows the band in appropriate position. Past Medical History Past Medical History: Hyperlipidemia Additional Past Medical History / Comment(s): HAS LEAK IN LAPBAND-SEEN BY JASON History of Any Multi-Drug Resistant Organisms: None Reported Past Surgical History: Bariatric Surgery, Section Additional Past Surgical History / Comment(s): lap band 2010. COLONOSCOPY. EGD. C-SEC X 2 Past Anesthesia/Blood Transfusion Reactions: No Reported Reaction Past Psychological History: Anxiety, Depression Past Alcohol Use History: Rare Additional Past Alcohol Use History / Comment(s): 1/2 pack per day-SINCE AGE 17- QUIT FOR 9 YEARS THEN STARTED UP AGAIN Past Drug Use History: None Reported - Past Family History Mother Family Medical History: Cancer Additional Family Medical History / Comment(s): LUNG AND STOMACH Surgical - Exam - General well developed, well nourished, no distress - Eyes PERRL - ENT normal pinna - Neck no masses - Respiratory normal expansion - Cardiovascular Rhythm: regular - Abdomen Abdomen: soft, non tender Bariatric Assessment & Plan Plan: Patient's lap band adjustment should 0.5 mL removed from her band. She currently is 4.5 mL in the band. She was able to water without difficulty. She'll follow-up in 4 weeks. Bariatric Checklist Checklist: Plan: Checklist: EGD: 1. Hiatal hernia: 2. H. Pylori: HgbA1c: Vitamin D: Smoking: Current every day smoker Primary care physician referral: Dr Browne Psychiatry clearance: Cardiology clearance: Sleep study: Diet journal: VTE risk score: VTE risk level: Rehab needs at discharge:
[2019-10-30 14:37] VITALS: BP 127/84; PULSE 100; TEMP 97.7; BMI 29.5
== END | disposition home or self-care (01) ==
LOC: BARWHC3 13:57
PROVIDERS: ATTEND Surgery
DX: Z46.51 Encounter for fitting and adjustment of gastric lap band (principal); R11.2 Nausea with vomiting, unspecified; F17.200 Nicotine dependence, unspecified, uncomplicated; Z98.84 Bariatric surgery status
CPT/HCPCS: 99212

== ENCOUNTER → 2019-12-04 | Outpatient (CLI) | payer MEDICARE ==
[2019-12-04 13:58] VITALS: BP 112/72; PULSE 84; TEMP 98.1; BMI 29.5
--- NOTE | 2019-12-04 14:36 | P.HPBAR ---
Bariatric H&P - History & Physicial H&P Date: 12/04/19 History & Physicial: Visit/CC: lap band adjustment Patient initial contact: Initial weight: 86.409 kg Initial weight in pounds: 190.50 Height: 5 ft 6.75 in Initial BMI: 30.0 Last weight: Current weight: 84.822 kg Current weight in pounds: 187.00 Current BMI: 29.5 [place] body weight (based on NIH guidelines): 60.668 kg Excess body weight loss: 6.1% The patient is a 64 year-old F who presents for Bariatric Assessment. Patient presents today for lab band follow. She is requesting a fill of her band. Past Medical History Past Medical History: Hyperlipidemia Additional Past Medical History / Comment(s): HAS LEAK IN LAPBAND-SEEN BY JASON History of Any Multi-Drug Resistant Organisms: None Reported Past Surgical History: Bariatric Surgery, Section Additional Past Surgical History / Comment(s): lap band 2009. COLONOSCOPY. EGD. C-SEC X 2 Past Anesthesia/Blood Transfusion Reactions: No Reported Reaction Smoking Status: Current every day smoker - Past Family History Mother Family Medical History: Cancer Additional Family Medical History / Comment(s): LUNG AND STOMACH Surgical - Exam Vital Signs Temp Pulse BP 98.1 F 84 112/72 12/04/19 13:49 12/04/19 13:49 12/04/19 13:49 - General well developed, well nourished, no distress - Eyes PERRL - ENT normal pinna - Neck no masses - Respiratory normal expansion - Cardiovascular Rhythm: regular - Abdomen Abdomen: soft Bariatric Assessment & Plan Plan: 0.2 mL was added to the band. She currently is 4.7 mL in the band. She'll follow-up in 4 weeks. Bariatric Checklist Checklist: Plan: Checklist: EGD: 1. Hiatal hernia: 2. H. Pylori: HgbA1c: Vitamin D: Smoking: Current every day smoker Primary care physician referral: Dr Browne Psychiatry clearance: Cardiology clearance: Sleep study: Diet journal: VTE risk score: VTE risk level: Rehab needs at discharge:
== END | disposition home or self-care (01) ==
LOC: BARWHC3 13:30
PROVIDERS: ATTEND Surgery
DX: Z46.51 Encounter for fitting and adjustment of gastric lap band (principal); Z98.84 Bariatric surgery status
CPT/HCPCS: 99212

== ENCOUNTER 2020-04-03 10:31 | Emergency (ER) | payer MEDICARE ==
[2020-04-03 10:38] VITALS: RESP 18; TEMP 98.4
[2020-04-03] MEDS ORDERED: SODIUM CHLORIDE 0.9% 1,000 ML IV STA (11:00)
--- NOTE | 2020-04-03 11:02 | ED ---
General Adult HPI - General Chief complaint: Arrhythmia/Palpitations Stated complaint: rapid pulse Time Seen by Provider: 04/03/20 10:40 Source: patient Mode of arrival: ambulatory Limitations: no limitations - History of Present Illness Initial comments: 64-year-old female with a past medical history of COPD, hyperlipidemia, bariatric surgery in 2009 presents to the emergency room for "high heart rate." Patient reports that she has had a high heart rate at times for the past 6-7 months. Patient states that she saw her doctor in September for this and an EKG is performed. It she was to monitor the symptoms. Patient states they have continued. She states that she checks her blood pressure in the morning sometimes her heart rate is very high. She does not have symptoms when this occurs. She does not feel her heart racing or feel lightheaded or short of breath. Patient states symptoms when she lies flat she feels her heart going fast as well. Patient states that when she went to check her blood pressure today her heart rate was 1/29 she decided to come into the emergency room. Patient is asymptomatic.Patient has no other complaints at this time including shortness of breath, chest pain, abdominal pain, nausea or vomiting, headache, or visual changes. - Related Data Home Medications Medication Instructions Recorded Confirmed Beclomethasone Dipropionate [Qvar 2 puff INHALATION BID 03/29/18 12/04/19 40 mcg Redihaler] Montelukast [Singulair] 10 mg PO HS 03/29/18 12/04/19 Progesterone, Micronized 100 mg PO DAILY 03/29/18 12/04/19 [Progesterone] Venlafaxine HCl [Effexor] 75 mg PO DAILY 03/29/18 12/04/19 Atorvastatin Calcium [Lipitor] 10 mg PO DAILY 12/04/19 12/04/19 Tiotropium 18 Mcg/Puff [Spiriva] 1 puff INHALATION DAILY 12/04/19 12/04/19 Allergies Allergy/AdvReac Type Severity Reaction Status Date / Time No Known Allergies Allergy Verified 04/03/20 10:33 Review of Systems ROS Statement: Those systems with pertinent positive or pertinent negative responses have been documented in the HPI. ROS Other: All systems not noted in ROS Statement are negative. Past Medical History Past Medical History: COPD, Hyperlipidemia Additional Past Medical History / Comment(s): HAS LEAK IN LAPBAND-SEEN BY JACQUELYN MÁRQUEZ History of Any Multi-Drug Resistant Organisms: None Reported Past Surgical History: Bariatric Surgery, Section Additional Past Surgical History / Comment(s): lap band 2010. COLONOSCOPY. EGD. C-SEC X 2 Past Anesthesia/Blood Transfusion Reactions: No Reported Reaction Past Psychological History: Anxiety, Depression Smoking Status: Current every day smoker Past Alcohol Use History: None Reported Past Drug Use History: None Reported - Past Family History Mother Family Medical History: Cancer Additional Family Medical History / Comment(s): LUNG AND STOMACH General Exam Limitations: no limitations General appearance: alert, in no apparent distress Head exam: Present: atraumatic, normocephalic, normal inspection Eye exam: Present: normal appearance, PERRL, EOMI. Absent: scleral icterus, conjunctival injection ENT exam: Present: normal exam, mucous membranes moist Neck exam: Present: normal inspection, full ROM. Absent: tenderness Respiratory exam: Present: normal lung sounds bilaterally. Absent: respiratory distress, wheezes Cardiovascular Exam: Present: regular rate, normal rhythm, normal heart sounds GI/Abdominal exam: Present: soft, normal bowel sounds. Absent: distended, tenderness Neurological exam: Present: alert Course Vital Signs 04/03/20 04/03/20 10:33 11:34 Temperature 98.4 F Pulse Rate 105 H Pulse Rate [ 85 Sitting Patient Resource Coordinator] Pulse Rate [ 90 Standing Patient Resource Coordinator ] Pulse Rate [ 81 Supine Patient Resource Coordinator] Respiratory 18 Rate Blood Pressure 134/76 Blood Pressure 122/75 [Sitting] Blood Pressure 110/76 [Standing] Blood Pressure 107/64 [Supine] O2 Sat by Pulse 95 Oximetry - Reevaluation(s) Reevaluation #1: 04/03/20 11:03 When I'm in the room patient heart rate is between 80s and mid 90s EKG Findings - EKG Comments: EKG Findings:: Normal sinus rhythm, ventricular rate 96, VA interval 158, QTC 459 Medical Decision Making - Medical Decision Making Vitals are stable. Heart rate has been in the 70s to the 90s. Orthostatics are negative. EKG shows a normal sinus rhythm. CBC CMP unremarkable. Troponin negative. TSH normal. Chest x-ray shows no acute process. Patient has been a symptomatically her stay and does not get symptoms when her heart rate is high, usually notics when checking her blood pressure. At this point patient is stable for outpatient follow-up with cardiology. May want Holter monitor. If she has any symptoms she will immediately return to the emergency room. - Lab Data Result diagrams: 04/03/20 11:34 04/03/20 11:34 Lab Results 04/03/20 04/03/20 04/03/20 Range/Units 11:34 11:34 11:34 WBC 8.3 (3.8-10.6) k/uL RBC 4.40 (3.80-5.40) m/uL Hgb 13.5 (11.4-16.0) gm/dL Hct 40.8 (34.0-46.0) % MCV 92.8 (80.0-100.0) fL MCH 30.6 (25.0-35.0) pg MCHC 33.0 (31.0-37.0) g/dL RDW 12.6 (11.5-15.5) % Plt Count 292 (150-450) k/uL MPV 7.8 Neutrophils % 60 % Lymphocytes % 30 % Monocytes % 4 % Eosinophils % 4 % Basophils % 1 % Neutrophils # 5.0 (1.3-7.7) k/uL Lymphocytes # 2.5 (1.0-4.8) k/uL Monocytes # 0.4 (0-1.0) k/uL Eosinophils # 0.3 (0-0.7) k/uL Basophils # 0.1 (0-0.2) k/uL PT 10.5 (9.0-12.0) sec INR 1.0 (<1.2) APTT 23.8 (22.0-30.0) sec Sodium 139 (137-145) mmol/L Potassium 4.2 (3.5-5.1) mmol/L Chloride 105 (98-107) mmol/L Carbon Dioxide 27 (22-30) mmol/L Anion Gap 7 mmol/L BUN 11 (7-17) mg/dL Creatinine 0.64 (0.52-1.04) mg/dL Est GFR (CKD-EPI)AfAm >90 (>60 ml/min/1.73 sqM) Est GFR (CKD-EPI)NonAf >90 (>60 ml/min/1.73 sqM) Glucose 97 (74-99) mg/dL Calcium 9.2 (8.4-10.2) mg/dL Magnesium 1.9 (1.6-2.3) mg/dL Total Bilirubin 0.5 (0.2-1.3) mg/dL AST 26 (14-36) U/L ALT 22 (4-34) U/L Alkaline Phosphatase 73 (38-126) U/L Troponin I (0.000-0.034) ng/mL Total Protein 6.7 (6.3-8.2) g/dL Albumin 3.9 (3.5-5.0) g/dL TSH 0.990 (0.465-4.680) mIU/L 04/03/20 Range/Units 11:34 WBC (3.8-10.6) k/uL RBC (3.80-5.40) m/uL Hgb (11.4-16.0) gm/dL Hct (34.0-46.0) % MCV (80.0-100.0) fL MCH (25.0-35.0) pg MCHC (31.0-37.0) g/dL RDW (11.5-15.5) % Plt Count (150-450) k/uL MPV Neutrophils % % Lymphocytes % % Monocytes % % Eosinophils % % Basophils % % Neutrophils # (1.3-7.7) k/uL Lymphocytes # (1.0-4.8) k/uL Monocytes # (0-1.0) k/uL Eosinophils # (0-0.7) k/uL Basophils # (0-0.2) k/uL PT (9.0-12.0) sec INR (<1.2) APTT (22.0-30.0) sec Sodium (137-145) mmol/L Potassium (3.5-5.1) mmol/L Chloride (98-107) mmol/L Carbon Dioxide (22-30) mmol/L Anion Gap mmol/L BUN (7-17) mg/dL Creatinine (0.52-1.04) mg/dL Est GFR (CKD-EPI)AfAm (>60 ml/min/1.73 sqM) Est GFR (CKD-EPI)NonAf (>60 ml/min/1.73 sqM) Glucose (74-99) mg/dL Calcium (8.4-10.2) mg/dL Magnesium (1.6-2.3) mg/dL Total Bilirubin (0.2-1.3) mg/dL AST (14-36) U/L ALT (4-34) U/L Alkaline Phosphatase (38-126) U/L Troponin I <0.012 (0.000-0.034) ng/mL Total Protein (6.3-8.2) g/dL Albumin (3.5-5.0) g/dL TSH (0.465-4.680) mIU/L Disposition Clinical Impression: History of tachycardia Disposition: HOME SELF-CARE Condition: Good Instructions (If sedation given, give patient instructions): Heart Palpitations (ED) Additional Instructions: Please follow up with cardiology. If you have any worsening symptoms return to the emergency room. Is patient prescribed a controlled substance at d/c from ED?: No Referrals: Julian Browne DO [Primary Care Provider] - 1-2 days Paul Ling MD [STAFF PHYSICIAN] - 1-2 days Time of Disposition: 13:04
[2020-04-03 11:42] LABS: Basophils # (A) 0.1 k/uL (0-0.2); Basophils % (A) 1 %; Eosinophils # (A) 0.3 k/uL (0-0.7); Eosinophils % (A) 4 %; HCT 40.8 % (34.0-46.0); HGB 13.5 gm/dL (11.4-16.0); Lymphocytes # (A) 2.5 k/uL (1.0-4.8); Lymphocytes % (A) 30 %; MCH 30.6 pg (25.0-35.0); MCV 92.8 fL (80.0-100.0); Mean Platelet Volume 7.8; Monocytes # (A) 0.4 k/uL (0-1.0); Monocytes % (A) 4 %; Neutrophils % (A) 60 %; Platelet Count 292 k/uL (150-450); RDW 12.6 % (11.5-15.5); WBC 8.3 k/uL (3.8-10.6)
--- NOTE | 2020-04-03 11:49 | XR ---
EXAMINATION TYPE: XR chest 2V DATE OF EXAM: 04/03/2020 COMPARISON: NONE TECHNIQUE: PA and lateral views submitted. HISTORY: Tachycardia FINDINGS: The lungs are clear and there is no pneumothorax, pleural effusion, or focal pneumonia. Heart size normal. No overt failure. Hyperinflation of the lungs. (Noted. Degenerative change of the spine. Diff use osteopenia. IMPRESSION: 1. No acute process.
[2020-04-03 11:50] LABS: Partial Thromboplastin Time 23.8 sec (22.0-30.0); Prothrombin Time 10.5 sec (9.0-12.0)
[2020-04-03 11:57] LABS: ALT 22 U/L (4-34); AST 26 U/L (14-36); African American GFR (CKD) >90 (>60 ml/min/1.73 sqM); Albumin 3.9 g/dL (3.5-5.0); Alkaline Phosphatase 73 U/L (38-126); Anion Gap 7 mmol/L; Blood Urea Nitrogen 11 mg/dL (7-17); Calcium 9.2 mg/dL (8.4-10.2); Carbon Dioxide 27 mmol/L (22-30); Chloride 105 mmol/L (98-107); Glucose 97 mg/dL (74-99); Magnesium 1.9 mg/dL (1.6-2.3); Non-African American GFR(CKD) >90 (>60 ml/min/1.73 sqM); Potassium 4.2 mmol/L (3.5-5.1); Sodium 139 mmol/L (137-145); Total Bilirubin 0.5 mg/dL (0.2-1.3); Total Protein 6.7 g/dL (6.3-8.2)
[2020-04-03 13:24] VITALS: BP 115/69; PULSE 77
== END 2020-04-03 13:25 | disposition home or self-care (01) ==
LOC: EC 10:31
DX: R00.0 Tachycardia, unspecified (principal); J44.9 Chronic obstructive pulmonary disease, unspecified; E78.5 Hyperlipidemia, unspecified; F17.200 Nicotine dependence, unspecified, uncomplicated; Z79.51 Long term (current) use of inhaled steroids; Z79.899 Other long term (current) drug therapy; Z98.84 Bariatric surgery status
CPT/HCPCS: 36415; 71046; 80053; 83735; 84443; 84484; 85025; 85610; 85730; 93005; 96360; 96361; 99285

== ENCOUNTER 2020-08-22 04:36 | Emergency (ER) | payer MEDICARE ==
[2020-08-22 04:56] LABS: Glucose,Whole Blood 175 mg/dL (75-99)
[2020-08-22 05:19] LABS: Basophils % (A) 0 %; Eosinophils # (A) 0.2 k/uL (0-0.7); Eosinophils % (A) 2 %; HCT 43.4 % (34.0-46.0); HGB 14.6 gm/dL (11.4-16.0); Lymphocytes # (A) 1.2 k/uL (1.0-4.8); Lymphocytes % (A) 11 %; MCH 30.7 pg (25.0-35.0); MCHC 33.6 g/dL (31.0-37.0); MCV 91.3 fL (80.0-100.0); Mean Platelet Volume 7.4; Monocytes # (A) 0.4 k/uL (0-1.0); Monocytes % (A) 4 %; Neutrophils # (A) 9.1 k/uL (1.3-7.7); Neutrophils % (A) 83 %; Platelet Count 306 k/uL (150-450); RBC 4.75 m/uL (3.80-5.40)
[2020-08-22 05:29] LABS: ALT 32 U/L (4-34); AST 36 U/L (14-36); African American GFR (CKD) >90 (>60 ml/min/1.73 sqM); Albumin 4.5 g/dL (3.5-5.0); Alkaline Phosphatase 93 U/L (38-126); Amylase 74 U/L (30-110); Anion Gap 8 mmol/L; Blood Urea Nitrogen 17 mg/dL (7-17); Calcium 9.6 mg/dL (8.4-10.2); Carbon Dioxide 30 mmol/L (22-30); Chloride 104 mmol/L (98-107); Glucose 164 mg/dL (74-99); Lipase 44 U/L (23-300); Non-African American GFR(CKD) >90 (>60 ml/min/1.73 sqM); Potassium 4.5 mmol/L (3.5-5.1); Sodium 142 mmol/L (137-145); Total Bilirubin 0.6 mg/dL (0.2-1.3); Total Protein 7.6 g/dL (6.3-8.2)
--- NOTE | 2020-08-22 06:14 | ED ---
Abdominal Pain HPI - General Source: patient, family Mode of arrival: ambulatory Limitations: no limitations - History of Present Illness MD Complaint: abdominal pain Onset/Timin -: hour(s) Location: diffuse Radiation: none Severity: severe Quality: cramping, sharp Consistency: now resolved Improves With: nothing Worsens With: nothing Associated Symptoms: nausea, vomiting <Patrick Dobbins - Last Filed: 08/22/20 06:10> <Mckinley Cotton - Last Filed: 08/22/20 08:03> - General Chief Complaint: Abdominal Pain Stated Complaint: Abd Pain Time Seen by Provider: 08/22/20 04:49 - History of Present Illness Initial Comments: This patient is a 65-year-old woman who presents to be evaluated for abdominal pain. Symptoms started last night a bit after 10 PM. She indicates diffusely across the abdomen and states the pain was sharp and crampy she states that it felt like she had a lot of gas. The patient tried a number of things but could not obtain any relief. Patient also had some nausea and associated dry heaves. When the pain was not resolving they decided to be evaluated here. She does note that now the pain has resolved. There was no change in urination. Last bowel movement was yesterday and normal. (Patrick Dobbins) - Related Data Home Medications Medication Instructions Recorded Confirmed Beclomethasone Dipropionate [Qvar 2 puff INHALATION BID 03/29/18 12/04/19 40 mcg Redihaler] Montelukast [Singulair] 10 mg PO HS 03/29/18 12/04/19 Progesterone, Micronized 100 mg PO DAILY 03/29/18 12/04/19 [Progesterone] Venlafaxine HCl [Effexor] 75 mg PO DAILY 03/29/18 12/04/19 Atorvastatin Calcium [Lipitor] 10 mg PO DAILY 12/04/19 12/04/19 Tiotropium 18 Mcg/Puff [Spiriva] 1 puff INHALATION DAILY 12/04/19 12/04/19 Allergies Allergy/AdvReac Type Severity Reaction Status Date / Time No Known Allergies Allergy Verified 08/22/20 04:47 Review of Systems ROS Other: All systems not noted in ROS Statement are negative. Constitutional: Denies: fever, chills Respiratory: Denies: cough, dyspnea Cardiovascular: Denies: chest pain, palpitations, edema Gastrointestinal: Reports: abdominal pain, nausea, vomiting. Denies: diarrhea, constipation, hematemesis, melena, hematochezia Genitourinary: Denies: dysuria, frequency, hematuria Musculoskeletal: Denies: back pain Skin: Denies: rash Neurological: Denies: headache, weakness, numbness <Patrick Dobbins - Last Filed: 08/22/20 06:10> ROS Other: All systems not noted in ROS Statement are negative. <Mckinley Cotton - Last Filed: 08/22/20 08:03> ROS Statement: Those systems with pertinent positive or pertinent negative responses have been documented in the HPI. Past Medical History Past Medical History: COPD, Hyperlipidemia Additional Past Medical History / Comment(s): HAS LEAK IN LAPBAND-SEEN BY JASON History of Any Multi-Drug Resistant Organisms: None Reported Past Surgical History: Bariatric Surgery, Section Additional Past Surgical History / Comment(s): lap band 2010. COLONOSCOPY. EGD. C-SEC X 2 Past Anesthesia/Blood Transfusion Reactions: No Reported Reaction Past Psychological History: Anxiety, Depression Smoking Status: Former smoker Past Alcohol Use History: None Reported Past Drug Use History: None Reported - Past Family History Mother Family Medical History: Cancer Additional Family Medical History / Comment(s): LUNG AND STOMACH <Patrick Dobbins - Last Filed: 08/22/20 06:10> General Exam Limitations: no limitations General appearance: alert, in no apparent distress Head exam: Present: atraumatic, normocephalic Eye exam: Present: normal appearance. Absent: scleral icterus, conjunctival injection Neck exam: Present: normal inspection Respiratory exam: Present: normal lung sounds bilaterally. Absent: respiratory distress, wheezes, rales, rhonchi, stridor Cardiovascular Exam: Present: regular rate, normal rhythm, normal heart sounds. Absent: systolic murmur, diastolic murmur, rubs, gallop GI/Abdominal exam: Present: soft. Absent: distended, tenderness, guarding, rebound, rigid, mass Extremities exam: Present: normal inspection, normal capillary refill. Absent: pedal edema, calf tenderness Back exam: Present: normal inspection. Absent: CVA tenderness (R), CVA tenderness (L) Neurological exam: Present: alert Skin exam: Present: warm, dry, intact, normal color. Absent: rash <ShilpiPatrick - Last Filed: 08/22/20 06:10> Course Vital Signs 08/22/20 04:43 Temperature 98.1 F Pulse Rate 90 Respiratory 20 Rate Blood Pressure 129/79 O2 Sat by Pulse 97 Oximetry Medical Decision Making - Lab Data Result diagrams: 08/22/20 05:03 08/22/20 05:03 <Patrick Dobbins - Last Filed: 08/22/20 06:10> - Lab Data Result diagrams: 08/22/20 05:03 08/22/20 05:03 <Mckinley Cotton - Last Filed: 08/22/20 08:03> - Medical Decision Making pT reevaluated, resting comfortably, no further pain or nausea. No vomiting. Vital signs are stable. She states she has been passing gas and has been able to tolerate oral liquids in the emergency department. Her workup is essentially unremarkable. she has had no further pain. She's given strict return parameters. She will monitor flatus and bowel movements and return as needed. (Mckinley Cotton) - Lab Data Lab Results 08/22/20 08/22/20 08/22/20 Range/Units 04:55 05:03 05:03 WBC 11.0 H (3.8-10.6) k/uL RBC 4.75 (3.80-5.40) m/uL Hgb 14.6 (11.4-16.0) gm/dL Hct 43.4 (34.0-46.0) % MCV 91.3 (80.0-100.0) fL MCH 30.7 (25.0-35.0) pg MCHC 33.6 (31.0-37.0) g/dL RDW 12.0 (11.5-15.5) % Plt Count 306 (150-450) k/uL MPV 7.4 Neutrophils % 83 % Lymphocytes % 11 % Monocytes % 4 % Eosinophils % 2 % Basophils % 0 % Neutrophils # 9.1 H (1.3-7.7) k/uL Lymphocytes # 1.2 (1.0-4.8) k/uL Monocytes # 0.4 (0-1.0) k/uL Eosinophils # 0.2 (0-0.7) k/uL Basophils # 0.0 (0-0.2) k/uL Sodium (137-145) mmol/L Potassium (3.5-5.1) mmol/L Chloride (98-107) mmol/L Carbon Dioxide (22-30) mmol/L Anion Gap mmol/L BUN (7-17) mg/dL Creatinine (0.52-1.04) mg/dL Est GFR (CKD-EPI)AfAm (>60 ml/min/1.73 sqM) Est GFR (CKD-EPI)NonAf (>60 ml/min/1.73 sqM) Glucose (74-99) mg/dL POC Glucose (mg/dL) 175 H (75-99) mg/dL POC Glu Child Neurologist ID Jai Baer Calcium (8.4-10.2) mg/dL Total Bilirubin (0.2-1.3) mg/dL AST (14-36) U/L ALT (4-34) U/L Alkaline Phosphatase (38-126) U/L Total Protein (6.3-8.2) g/dL Albumin (3.5-5.0) g/dL Amylase (30-110) U/L Lipase (23-300) U/L Urine Color Yellow Urine Appearance Clear (Clear) Urine pH 5.0 (5.0-8.0) Ur Specific [place] 1.029 (1.001-1.035) Urine Protein Trace H (Negative) Urine Glucose (UA) Negative (Negative) Urine Ketones Negative (Negative) Urine Blood Negative (Negative) Urine Nitrite Negative (Negative) Urine Bilirubin Negative (Negative) Urine Urobilinogen <2.0 (<2.0) mg/dL Ur Leukocyte Esterase Small H (Negative) Urine WBC 4 (0-5) /hpf Urine Bacteria Rare H (None) /hpf Urine Mucus Occasional H (None) /hpf 08/22/20 Range/Units 05:03 WBC (3.8-10.6) k/uL RBC (3.80-5.40) m/uL Hgb (11.4-16.0) gm/dL Hct (34.0-46.0) % MCV (80.0-100.0) fL MCH (25.0-35.0) pg MCHC (31.0-37.0) g/dL RDW (11.5-15.5) % Plt Count (150-450) k/uL MPV Neutrophils % % Lymphocytes % % Monocytes % % Eosinophils % % Basophils % % Neutrophils # (1.3-7.7) k/uL Lymphocytes # (1.0-4.8) k/uL Monocytes # (0-1.0) k/uL Eosinophils # (0-0.7) k/uL Basophils # (0-0.2) k/uL Sodium 142 (137-145) mmol/L Potassium 4.5 (3.5-5.1) mmol/L Chloride 104 (98-107) mmol/L Carbon Dioxide 30 (22-30) mmol/L Anion Gap 8 mmol/L BUN 17 (7-17) mg/dL Creatinine 0.63 (0.52-1.04) mg/dL Est GFR (CKD-EPI)AfAm >90 (>60 ml/min/1.73 sqM) Est GFR (CKD-EPI)NonAf >90 (>60 ml/min/1.73 sqM) Glucose 164 H (74-99) mg/dL POC Glucose (mg/dL) (75-99) mg/dL POC Glu Child Neurologist ID Calcium 9.6 (8.4-10.2) mg/dL Total Bilirubin 0.6 (0.2-1.3) mg/dL AST 36 (14-36) U/L ALT 32 (4-34) U/L Alkaline Phosphatase 93 (38-126) U/L Total Protein 7.6 (6.3-8.2) g/dL Albumin 4.5 (3.5-5.0) g/dL Amylase 74 (30-110) U/L Lipase 44 (23-300) U/L Urine Color Urine Appearance (Clear) Urine pH (5.0-8.0) Ur Specific [place] (1.001-1.035) Urine Protein (Negative) Urine Glucose (UA) (Negative) Urine Ketones (Negative) Urine Blood (Negative) Urine Nitrite (Negative) Urine Bilirubin (Negative) Urine Urobilinogen (<2.0) mg/dL Ur Leukocyte Esterase (Negative) Urine WBC (0-5) /hpf Urine Bacteria (None) /hpf Urine Mucus (None) /hpf Disposition <Patrick Dobbins - Last Filed: 08/22/20 06:10> Is patient prescribed a controlled substance at d/c from ED?: No Time of Disposition: 08:03 <Mckinley Cotton - Last Filed: 08/22/20 08:03> Clinical Impression: Abdominal pain Disposition: HOME SELF-CARE Condition: Good Instructions (If sedation given, give patient instructions): Abdominal Pain (ED) Referrals: Julian Browne DO [Primary Care Provider] - 1-2 days
[2020-08-22 07:41] LABS: Appearance,Urine Clear (Clear); Bacteria,Urine Rare /hpf; Bilirubin,Urine Negative (Negative); Blood,Urine Negative (Negative); Color,Urine Yellow; Glucose,Urine (UA) Negative (Negative); Ketones,Urine Negative (Negative); Leukocyte Esterase,Urine Small (Negative); Mucus,Urine Occasional /hpf; Nitrite,Urine Negative (Negative); Protein,Urine Trace (Negative); Specific Gravity,Urine 1.029 (1.001-1.035); Urobilinogen,Urine <2.0 mg/dL (<2.0); WBC,Urine 4 /hpf (0-5)
[2020-08-22 08:16] VITALS: BP 122/83; PULSE 88; RESP 18; TEMP 97.8
== END 2020-08-22 08:13 | disposition home or self-care (01) ==
LOC: EC 04:36
DX: R10.9 Unspecified abdominal pain (principal); J44.9 Chronic obstructive pulmonary disease, unspecified; E78.5 Hyperlipidemia, unspecified; F32.9 Major depressive disorder, single episode, unspecified; Z87.891 Personal history of nicotine dependence
CPT/HCPCS: 36415; 80053; 81001; 82150; 83690; 85025; 99284

== ENCOUNTER → 2020-12-31 | Outpatient (CLI) | payer MEDICARE ==
--- NOTE | 2020-12-31 10:08 | CTL ---
EXAMINATION TYPE: CT Low Dose Lung DATE OF EXAM ORDERED: 12/31/2020 HISTORY: Long-term tobacco use. Lung cancer screening CT DLP: 105.[address] CTDI: 3.1 mGy Automated exposure control for dose reduction was used. SCREENING VISIT: Third study after baseline COMPARISON: Prior studies 2019 through 2017 TECHNIQUE: Low dose computed tomography scan was performed through the chest at 1 mm thick sections a nd reconstructed images in multiple planes at 1 mm and [address] DIAGNOSTIC QUALITY: Satisfactory FINDINGS: LUNG NODULES: Present, detailed below: Stable calcified 3 mm anterior right basilar nodule axial image 207 unchanged through 2017 study. Sta ble calcified 4 mm right upper to midlung nodule or benign granuloma image 28 series 10 and 4 mm calc ified left midlung nodule same image. Some additional stable scattered calcified nodules all measurin g under 5 mm in size are noted. New noncalcified Micronodules measuring 2 to 3 mm sagittal image 76 anterior right lower lung. Additi onal scattered micronodules more prominent on current study all measuring 3 mm or smaller in size. La rgest measured nodule is 4 to 5 mm axial image 154 anterior left midlung unchanged from 2017 study. LUNGS: COPD: Severity: Mild Fibrosis: Severity: None Lymph nodes: No new greater than 1 cm Other findings: None RIGHT PLEURAL SPACE: Effusion: None Calcification: None Thickening: None Pneumothorax: None LEFT PLEURAL SPACE: Effusion: None Calcification: None Thickening: None Pneumothorax: None HEART: Heart Size: Normal Coronary calcification: None Pericardial effusion: None OTHER FINDINGS: Upper abdomen: Lap band device redemonstrated Bony thorax: Mild multilevel spurring redemonstrated in the spine. Supraclavicular region: None Other: None IMPRESSION: No new or enlarging greater than 5 [address] non[address]ified pulmonary nodules. CT LUNG RAD AND CT CHEST RECOMMENDATION: Lung-Rad 2 Benign Appearance or Behavior: Continue annual sc reening with LDCT in 12 months. S Modifier (other clinically significant findings): None
== END | disposition home or self-care (01) ==
LOC: RADCTMAIN 09:11
PROVIDERS: ATTEND Internal Medicine Sleep Medicine
DX: Z12.2 Encounter for screening for malignant neoplasm of respiratory organs (principal); Z72.0 Tobacco use
CPT/HCPCS: 71271

== ENCOUNTER 2021-01-24 06:41 | Emergency (ER) | payer MEDICARE ==
[2021-01-24 06:49] VITALS: TEMP 97.6
[2021-01-24 07:34] LABS: Basophils % (A) 0 %; Eosinophils # (A) 0.2 k/uL (0-0.7); Eosinophils % (A) 2 %; HCT 41.3 % (34.0-46.0); HGB 13.7 gm/dL (11.4-16.0); Lymphocytes # (A) 2.1 k/uL (1.0-4.8); Lymphocytes % (A) 24 %; MCH 31.8 pg (25.0-35.0); MCHC 33.2 g/dL (31.0-37.0); MCV 95.7 fL (80.0-100.0); Monocytes # (A) 0.4 k/uL (0-1.0); Monocytes % (A) 5 %; Neutrophils # (A) 5.7 k/uL (1.3-7.7); Neutrophils % (A) 68 %; Platelet Count 296 k/uL (150-450); RBC 4.32 m/uL (3.80-5.40); RDW 13.1 % (11.5-15.5); WBC 8.5 k/uL (3.8-10.6)
[2021-01-24 07:40] LABS: ALT 105 U/L (4-34); AST 115 U/L (14-36); African American GFR (CKD) >90 (>60 ml/min/1.73 sqM); Alkaline Phosphatase 118 U/L (38-126); Anion Gap 7 mmol/L; Blood Urea Nitrogen 12 mg/dL (7-17); Carbon Dioxide 26 mmol/L (22-30); Chloride 104 mmol/L (98-107); Glucose 131 mg/dL (74-99); Non-African American GFR(CKD) >90 (>60 ml/min/1.73 sqM); Potassium 4.8 mmol/L (3.5-5.1); Sodium 137 mmol/L (137-145); Total Bilirubin 0.6 mg/dL (0.2-1.3); Total Protein 7.4 g/dL (6.3-8.2)
[2021-01-24] MEDS ORDERED: MECLIZINE 12.5 MG TAB PO STA (07:48)
--- NOTE | 2021-01-24 07:53 | ED ---
General Adult HPI - General Chief complaint: Dizziness Stated complaint: Dizziness Time Seen by Provider: 01/24/21 06:57 Source: patient, RN notes reviewed, old records reviewed Mode of arrival: wheelchair - History of Present Illness Initial comments: 65-year-old female presenting with room spinning sensation, dizziness which began on Wednesday which is 5 days prior. She states that this did worsen this evening around 3 AM. She denies headache. Denies vision changes. Denies focal numbness or weakness. She states that she had room spinning sensation both with her eyes open or closed and sensation nausea without vomiting. No chest pain or abdominal pain. No palpitations. - Related Data Home Medications Medication Instructions Recorded Confirmed Beclomethasone Dipropionate [Qvar 2 puff INHALATION BID 03/29/18 12/04/19 40 mcg Redihaler] Montelukast [Singulair] 10 mg PO HS 03/29/18 12/04/19 Progesterone, Micronized 100 mg PO DAILY 03/29/18 12/04/19 [Progesterone] Venlafaxine HCl [Effexor] 75 mg PO DAILY 03/29/18 12/04/19 Atorvastatin Calcium [Lipitor] 10 mg PO DAILY 12/04/19 12/04/19 Tiotropium 18 Mcg/Puff [Spiriva] 1 puff INHALATION DAILY 12/04/19 12/04/19 Previous Rx's Medication Instructions Recorded Cephalexin [Keflex] 500 mg PO Q12HR #20 cap 01/24/21 Meclizine [Antivert] 25 mg PO TID PRN #30 tab 01/24/21 Ondansetron Odt [Zofran Odt] 4 mg PO Q8HR PRN #10 tab 01/24/21 Allergies Allergy/AdvReac Type Severity Reaction Status Date / Time No Known Allergies Allergy Verified 08/22/20 04:47 Review of Systems ROS Statement: Those systems with pertinent positive or pertinent negative responses have been documented in the HPI. ROS Other: All systems not noted in ROS Statement are negative. Past Medical History Past Medical History: COPD, Hyperlipidemia Additional Past Medical History / Comment(s): HAS LEAK IN LAPBAND-SEEN BY JASON History of Any Multi-Drug Resistant Organisms: None Reported Past Surgical History: Bariatric Surgery, Section Additional Past Surgical History / Comment(s): lap band 2009. COLONOSCOPY. EGD. C-SEC X 2 Past Anesthesia/Blood Transfusion Reactions: No Reported Reaction Past Psychological History: Anxiety, Depression Smoking Status: Former smoker Past Alcohol Use History: None Reported Past Drug Use History: None Reported - Past Family History Mother Family Medical History: Cancer Additional Family Medical History / Comment(s): LUNG AND STOMACH General Exam General appearance: alert, in no apparent distress Head exam: Present: atraumatic, normocephalic Eye exam: Present: normal appearance, PERRL ENT exam: Present: mucous membranes moist, TM's normal bilaterally Neck exam: Present: normal inspection. Absent: tenderness, meningismus Respiratory exam: Present: normal lung sounds bilaterally. Absent: respiratory distress, wheezes Cardiovascular Exam: Present: regular rate, normal rhythm GI/Abdominal exam: Present: soft. Absent: distended, tenderness, guarding, rebound Extremities exam: Present: normal inspection, normal capillary refill. Absent: pedal edema Neurological exam: Present: alert, oriented X3, CN II-XII intact, other (Normal finger to nose bilaterally, no ataxia, normal [id number].). Absent: motor sensory deficit Psychiatric exam: Present: normal affect, normal mood Skin exam: Present: warm, dry, intact. Absent: cyanosis, diaphoretic Course Vital Signs 01/24/21 01/24/21 06:45 08:47 Temperature 97.6 F Pulse Rate 92 84 Respiratory 16 18 Rate Blood Pressure 137/87 137/82 O2 Sat by Pulse 97 98 Oximetry EKG Findings - EKG Comments: EKG Findings:: Normal sinus rhythm low voltage mildly prolonged QT, rate of 90, LA interval 166, QRS duration [address] segment elevation. Medical Decision Making - Medical Decision Making 65-year-old female presenting with 4 days of vertigo. Patient well-appearing without ataxia, no focal findings. NIH is 0. I did perform CT brain which is negative for intracranial hemorrhage or mass effect. Laboratory studies are mostly unremarkable with a mild transaminitis. No abdominal pain or tenderness. Patient has 11 white cells and does report she's had some urinary urgency. She will be treated for UTI. She will be prescribed meclizine and Zofran. She will follow with her primary care physician. - Lab Data Result diagrams: 01/24/21 07:15 01/24/21 07:15 Lab Results 01/24/21 01/24/2101/24/21 Range/Units 07:15 07:15 07:15 WBC 8.5 (3.8-10.6) k/uL RBC 4.32 (3.80-5.40) m/uL Hgb 13.7 (11.4-16.0) gm/dL Hct 41.3 (34.0-46.0) % MCV 95.7 (80.0-100.0) fL MCH 31.8 (25.0-35.0) pg MCHC 33.2 (31.0-37.0) g/dL RDW 13.1 (11.5-15.5) % Plt Count 296 (150-450) k/uL MPV 8.0 Neutrophils % 68 % Lymphocytes % 24 % Monocytes % 5 % Eosinophils % 2 % Basophils % 0 % Neutrophils # 5.7 (1.3-7.7) k/uL Lymphocytes # 2.1 (1.0-4.8) k/uL Monocytes # 0.4 (0-1.0) k/uL Eosinophils # 0.2 (0-0.7) k/uL Basophils # 0.0 (0-0.2) k/uL Sodium 137 (137-145) mmol/L Potassium 4.8 (3.5-5.1) mmol/L Chloride 104 (98-107) mmol/L Carbon Dioxide 26 (22-30) mmol/L Anion Gap 7 mmol/L BUN 12 (7-17) mg/dL Creatinine 0.58 (0.52-1.04) mg/dL Est GFR (CKD-EPI)AfAm >90 (>60 ml/min/1.73 sqM) Est GFR (CKD-EPI)NonAf >90 (>60 ml/min/1.73 sqM) Glucose 131 H (74-99) mg/dL Calcium 9.0 (8.4-10.2) mg/dL Magnesium 2.0 (1.6-2.3) mg/dL Total Bilirubin 0.6 (0.2-1.3) mg/dL AST 115 H (14-36) U/L ALT 105 H (4-34) U/L Alkaline Phosphatase 118 (38-126) U/L Troponin I <0.012 (0.000-0.034) ng/mL Total Protein 7.4 (6.3-8.2) g/dL Albumin 4.0 (3.5-5.0) g/dL Urine Color Urine Appearance (Clear) Urine pH (5.0-8.0) Ur Specific [place] (1.001-1.035) Urine Protein (Negative) Urine Glucose (UA) (Negative) Urine Ketones (Negative) Urine Blood (Negative) Urine Nitrite (Negative) Urine Bilirubin (Negative) Urine Urobilinogen (<2.0) mg/dL Ur Leukocyte Esterase (Negative) Urine RBC (0-5) /hpf Urine WBC (0-5) /hpf Ur Squamous Epith Cells (0-4) /hpf Urine Bacteria (None) /hpf Urine Mucus (None) /hpf 01/24/21 Range/Units 07:21 WBC (3.8-10.6) k/uL RBC (3.80-5.40) m/uL Hgb (11.4-16.0) gm/dL Hct (34.0-46.0) % MCV (80.0-100.0) fL MCH (25.0-35.0) pg MCHC (31.0-37.0) g/dL RDW (11.5-15.5) % Plt Count (150-450) k/uL MPV Neutrophils % % Lymphocytes % % Monocytes % % Eosinophils % % Basophils % % Neutrophils # (1.3-7.7) k/uL Lymphocytes # (1.0-4.8) k/uL Monocytes # (0-1.0) k/uL Eosinophils # (0-0.7) k/uL Basophils # (0-0.2) k/uL Sodium (137-145) mmol/L Potassium (3.5-5.1) mmol/L Chloride (98-107) mmol/L Carbon Dioxide (22-30) mmol/L Anion Gap mmol/L BUN (7-17) mg/dL Creatinine (0.52-1.04) mg/dL Est GFR (CKD-EPI)AfAm (>60 ml/min/1.73 sqM) Est GFR (CKD-EPI)NonAf (>60 ml/min/1.73 sqM) Glucose (74-99) mg/dL Calcium (8.4-10.2) mg/dL Magnesium (1.6-2.3) mg/dL Total Bilirubin (0.2-1.3) mg/dL AST (14-36) U/L ALT (4-34) U/L Alkaline Phosphatase (38-126) U/L Troponin I (0.000-0.034) ng/mL Total Protein (6.3-8.2) g/dL Albumin (3.5-5.0) g/dL Urine Color Yellow Urine Appearance Clear (Clear) Urine pH 7.0 (5.0-8.0) Ur Specific [place] 1.013 (1.001-1.035) Urine Protein Negative (Negative) Urine Glucose (UA) Negative (Negative) Urine Ketones Negative (Negative) Urine Blood Negative (Negative) Urine Nitrite Negative (Negative) Urine Bilirubin Negative (Negative) Urine Urobilinogen 2.0 (<2.0) mg/dL Ur Leukocyte Esterase Large H (Negative) Urine RBC 1 (0-5) /hpf Urine WBC 11 H (0-5) /hpf Ur Squamous Epith Cells 2 (0-4) /hpf Urine Bacteria Occasional H (None) /hpf Urine Mucus Rare H (None) /hpf Disposition Clinical Impression: Vertigo, UTI (urinary tract infection) Disposition: HOME SELF-CARE Condition: Good Instructions (If sedation given, give patient instructions): Dizziness (ED), Vertigo (ED) Prescriptions: Meclizine [Antivert] 25 mg PO TID PRN #30 tab PRN Reason: Vertigo Cephalexin [Keflex] 500 mg PO Q12HR #20 cap Ondansetron Odt [Zofran Odt] 4 mg PO Q8HR PRN #10 tab PRN Reason: Vomiting Is patient prescribed a controlled substance at d/c from ED?: No Referrals: Julian Browne DO [Primary Care Provider] - 1-2 days Time of Disposition: 08:59
[2021-01-24 08:01] LABS: Appearance,Urine Clear (Clear); Bacteria,Urine Occasional /hpf; Bilirubin,Urine Negative (Negative); Blood,Urine Negative (Negative); Color,Urine Yellow; Glucose,Urine (UA) Negative (Negative); Ketones,Urine Negative (Negative); Leukocyte Esterase,Urine Large (Negative); Mucus,Urine Rare /hpf; Nitrite,Urine Negative (Negative); Protein,Urine Negative (Negative); RBC,Urine 1 /hpf (0-5); Specific Gravity,Urine 1.013 (1.001-1.035); Squamous Epithelial Cell,Urine 2 /hpf (0-4); WBC,Urine 11 /hpf (0-5)
--- NOTE | 2021-01-24 08:40 | CT ---
EXAMINATION TYPE: CT brain wo con DATE OF EXAM: 01/24/2021 HISTORY: Dizziness CT DLP: 1107.4 mGycm. Automated Exposure Control for Dose Reduction was Utilized. TECHNIQUE: CT scan of the head is performed without contrast. COMPARISON: None. FINDINGS: There is no acute intracranial hemorrhage or midline shift identified. Ventricles and sul ci within normal limits in size for patient's age. Lake-white matter differentiation is maintained. N o suspicious opacification of mastoid air cells bilaterally. Mild to moderate mucosal thickening infe rior right maxillary sinus otherwise sinuses are clear and globes are intact bilaterally. IMPRESSION: No acute findings evident.
[2021-01-24 08:49] VITALS: RESP 18
[2021-01-24 09:32] VITALS: BP 126/78; PULSE 80
== END 2021-01-24 09:32 | disposition home or self-care (01) ==
LOC: EC 06:41
DX: R42 Dizziness and giddiness (principal); N39.0 Urinary tract infection, site not specified; J44.9 Chronic obstructive pulmonary disease, unspecified; E78.5 Hyperlipidemia, unspecified; F32.A Depression, unspecified; F41.9 Anxiety disorder, unspecified; Z87.891 Personal history of nicotine dependence; Z79.51 Long term (current) use of inhaled steroids; Z79.899 Other long term (current) drug therapy
CPT/HCPCS: 36415; 70450; 80053; 81001; 83735; 84484; 85025; 87086; 93005; 99284

== ENCOUNTER → 2021-11-14 | Outpatient (CLI) | payer MEDICARE ==
--- NOTE | 2021-11-17 10:26 | MM ---
Reason for Exam: Screening (asymptomatic). Last mammogram was performed 2 year(s) and 9 month(s) ago. Patient History: Menarche at age 13. First Full-Term at age 30. Postmenopausal. Currently using Progesterone, starting at age 61. Benign Excisional Biopsy on the right side. Risk Values: Marcela 5 year model risk: 2.2%. NCI Lifetime model risk: 8.2%. Prior Study Comparison: 08/18/2017 Bilateral Screening Mammogram, [facility]. 02/23/2019 Bilateral Screening Mammogram, [facility]. 03/07/2019 Bilateral Diagnostic Mammogram, [facility]. Tissue Density: There are scattered fibroglandular densities. Findings: Analyzed By CAD. There couple of groups of benign-appearing round calcifications in the upper inner aspect right breast. No suspicious groups of microcalcifications, spiculated or lobular masses, architectural distortion or other secondary signs of malignancy are mammographically apparent. Overall Assessment: Benign, BI-RAD 2 Management: Screening Mammogram of both breasts in 1 year. A negative mammogram report should not preclude additional follow up of suspicious palpable abnormalities. Patient should continue monthly self breast exam. A clinical breast exam by your physician is recommended on an annual basis and results should be correlated with mammographic findings. Electronically signed and approved by: Julian Rangel D.O. Radiologis
== END | disposition home or self-care (01) ==
LOC: RADMAMWWP 16:11
PROVIDERS: ATTEND Family Medicine
DX: Z12.31 Encounter for screening mammogram for malignant neoplasm of breast (principal)
CPT/HCPCS: 77067

== ENCOUNTER → 2022-07-20 | Outpatient (CLI) | payer MEDICARE ==
[2022-07-20 13:41] VITALS: BP 122/83; PULSE 103; TEMP 98.1; BMI 35.4
--- NOTE | 2022-08-17 08:54 | P.HPBAR ---
Bariatric H&P - History & Physicial H&P Date: 07/20/22 History & Physicial: Visit/CC: lap band Patient initial contact: Initial weight: 86.409 kg Initial weight in pounds: 190.50 Height: 5 ft 6.75 in Initial BMI: 30.0 Last weight: Current weight: 102.058 kg Current weight in pounds: 225.00 Current BMI: 35.4 [place] body weight (based on NIH guidelines): 60.668 kg Excess body weight loss: The patient is a 67 year-old F who presents for Bariatric Assessment. Patient presents today for bariatric follow-up. She's requesting a fill of her band. She currently feels hungry. Past Medical History Past Medical History: COPD, Hyperlipidemia Additional Past Medical History / Comment(s): HAS LEAK IN LAPBAND-SEEN BY JASON History of Any Multi-Drug Resistant Organisms: None Reported Past Surgical History: Bariatric Surgery, Section Additional Past Surgical History / Comment(s): lap band 2009. COLONOSCOPY. EGD. C-SEC X 2 Past Anesthesia/Blood Transfusion Reactions: No Reported Reaction Smoking Status: Former smoker - Past Family History Mother Family Medical History: Cancer Additional Family Medical History / Comment(s): LUNG AND STOMACH Surgical - Exam Vital Signs Temp Pulse BP 98.1 F 103 H 122/83 07/20/22 13:33 07/20/22 13:33 07/20/22 13:33 - General well developed, well nourished, no distress - Eyes PERRL - ENT normal pinna - Neck no masses - Respiratory normal expansion - Cardiovascular Rhythm: regular - Abdomen Abdomen: soft, non tender Bariatric Assessment & Plan Plan: Patient LAP-BAND was just. She had 1 mL added to the band. She currently has 5.7 mL in the band. She'll follow-up in 4 weeks. Bariatric Checklist Checklist: Plan: Checklist: EGD: 1. Hiatal hernia: 2. H. Pylori: HgbA1c: Vitamin D: Smoking: Current every day smoker Primary care physician referral: Dr Browne Psychiatry clearance: Cardiology clearance: Sleep study: Diet journal: VTE risk score: VTE risk level: Rehab needs at discharge:
== END ==
LOC: BARWHC3 13:14
PROVIDERS: ATTEND Surgery
DX: E66.01 Morbid (severe) obesity due to excess calories (principal); F17.200 Nicotine dependence, unspecified, uncomplicated; J44.9 Chronic obstructive pulmonary disease, unspecified; E78.5 Hyperlipidemia, unspecified; Z46.51 Encounter for fitting and adjustment of gastric lap band; Z98.84 Bariatric surgery status; Z68.35 Body mass index [BMI] 35.0-35.9, adult
CPT/HCPCS: 99212

== ENCOUNTER → 2022-07-21 | Outpatient (CLI) | payer MEDICARE ==
--- NOTE | 2022-07-21 10:13 | P.HPBAR ---
Bariatric H&P - History & Physicial H&P Date: 07/21/22 History & Physicial: Visit/CC: Patient initial contact: Initial weight: 86.409 kg Initial weight in pounds: Height: Initial BMI: Last weight: Current weight: Current weight in pounds: Current BMI: [place] body weight (based on NIH guidelines): Excess body weight loss: The patient is a 66 year-old F who presents for Bariatric Assessment. Patient presents today for bariatric assessment. Patient had a fill on Wednesday. She is too tight. She is not able to keep any liquids down. She requesting fluid removed from her band. Past Medical History Past Medical History: COPD, Hyperlipidemia Additional Past Medical History / Comment(s): HAS LEAK IN LAPBAND-SEEN BY JASON History of Any Multi-Drug Resistant Organisms: None Reported Past Surgical History: Bariatric Surgery, Section Additional Past Surgical History / Comment(s): lap band 2009. COLONOSCOPY. EGD. C-SEC X 2 Past Anesthesia/Blood Transfusion Reactions: No Reported Reaction Smoking Status: Former smoker - Past Family History Mother Family Medical History: Cancer Additional Family Medical History / Comment(s): LUNG AND STOMACH Surgical - Exam - General well developed, well nourished, no distress - Eyes PERRL - ENT normal pinna - Neck no masses - Respiratory normal expansion - Cardiovascular Rhythm: regular - Abdomen Abdomen: soft, non tender Bariatric Assessment & Plan Plan: Patient's LAP-BAND was accessed. 4 mL removed from her band. She currently 1.7 mL in the band. She will follow-up in one week. Bariatric Checklist Checklist: Plan: Checklist: EGD: 1. Hiatal hernia: 2. H. Pylori: HgbA1c: Vitamin D: Smoking: Current every day smoker Primary care physician referral: Dr Browne Psychiatry clearance: Cardiology clearance: Sleep study: Diet journal: VTE risk score: VTE risk level: Rehab needs at discharge:
[2022-07-21 10:17] VITALS: BP 126/83; PULSE 86; RESP 16; TEMP 97.8; BMI 35.4
== END ==
LOC: BARWHC3 10:14
PROVIDERS: ATTEND Surgery
DX: E66.01 Morbid (severe) obesity due to excess calories (principal); Z46.51 Encounter for fitting and adjustment of gastric lap band; F17.200 Nicotine dependence, unspecified, uncomplicated; J44.9 Chronic obstructive pulmonary disease, unspecified; E78.5 Hyperlipidemia, unspecified
CPT/HCPCS: 99212

== ENCOUNTER → 2022-07-27 | Outpatient (CLI) | payer MEDICARE ==
[2022-07-27 13:46] VITALS: BP 138/87; PULSE 52; TEMP 97.6; BMI 35.6
--- NOTE | 2022-08-18 08:41 | P.HPBAR ---
Bariatric H&P - History & Physicial H&P Date: 07/27/22 History & Physicial: Visit/CC: lap band Patient initial contact: Initial weight: 86.409 kg Initial weight in pounds: 190.50 Height: 5 ft 6.75 in Initial BMI: 30.0 Last weight: Current weight: 102.512 kg Current weight in pounds: 226.00 Current BMI: 35.6 [place] body weight (based on NIH guidelines): 60.668 kg Excess body weight loss: The patient is a 67 year-old F who presents for Bariatric Assessment. Patient presents today for LAP-BAND adjustment. She currently feels hungry is requesting a fill of her band. Past Medical History Past Medical History: COPD, Hyperlipidemia Additional Past Medical History / Comment(s): HAS LEAK IN LAPBAND-SEEN BY JASON History of Any Multi-Drug Resistant Organisms: None Reported Past Surgical History: Bariatric Surgery, Section Additional Past Surgical History / Comment(s): lap band 2009. COLONOSCOPY. EGD. C-SEC X 2 Past Anesthesia/Blood Transfusion Reactions: No Reported Reaction Past Psychological History: Anxiety, Depression Smoking Status: Former smoker Past Alcohol Use History: None Reported Additional Past Alcohol Use History / Comment(s): 1/2 pack per day-SINCE AGE 17- QUIT FOR 9 YEARS THEN STARTED UP AGAIN Past Drug Use History: None Reported - Past Family History Mother Family Medical History: Cancer Additional Family Medical History / Comment(s): LUNG AND STOMACH Surgical - Exam Vital Signs Temp Pulse BP 97.6 F 52 L 138/87 07/27/22 13:41 07/27/22 13:41 07/27/22 13:41 - General well developed, well nourished, no distress - Eyes PERRL - Abdomen Abdomen: soft, non tender Bariatric Assessment & Plan Plan: patient LAP-BAND was just. She had 2 mL added to the band. She is 3.7 mL in th e band. She'll follow-up in 4 weeks. Bariatric Checklist Checklist: Plan: Checklist: EGD: 1. Hiatal hernia: 2. H. Pylori: HgbA1c: Vitamin D: Smoking: Current every day smoker Primary care physician referral: Dr Browne Psychiatry clearance: Cardiology clearance: Sleep study: Diet journal: VTE risk score: VTE risk level: Rehab needs at discharge:
== END ==
LOC: BARWHC3 13:20
PROVIDERS: ATTEND Surgery
DX: E66.01 Morbid (severe) obesity due to excess calories (principal); Z46.51 Encounter for fitting and adjustment of gastric lap band; J44.9 Chronic obstructive pulmonary disease, unspecified; E78.5 Hyperlipidemia, unspecified; Z68.35 Body mass index [BMI] 35.0-35.9, adult; F17.200 Nicotine dependence, unspecified, uncomplicated
CPT/HCPCS: 99212

== ENCOUNTER → 2022-08-03 | Outpatient (CLI) | payer MEDICARE ==
[2022-08-03 13:43] VITALS: BP 124/84; PULSE 97; TEMP 98.1; BMI 35.8
--- NOTE | 2022-08-05 09:32 | P.HPBAR ---
Bariatric H&P - History & Physicial H&P Date: 08/03/22 History & Physicial: Visit/CC: lap band Patient initial contact: Initial weight: 86.409 kg Initial weight in pounds: 190.50 Height: 5 ft 6.75 in Initial BMI: 30.0 Last weight: Current weight: 103.011 kg Current weight in pounds: 227.10 Current BMI: 35.8 [place] body weight (based on NIH guidelines): 60.668 kg Excess body weight loss: The patient is a 67 year-old F who presents for Bariatric Assessment. Patient presents today for LAP-BAND adjustment. She currently hungry and is requesting a fill. Past Medical History Past Medical History: COPD, Hyperlipidemia Additional Past Medical History / Comment(s): HAS LEAK IN LAPBAND-SEEN BY JASON History of Any Multi-Drug Resistant Organisms: None Reported Past Surgical History: Bariatric Surgery, Section Additional Past Surgical History / Comment(s): lap band 2009. COLONOSCOPY. EGD. C-SEC X 2 Past Anesthesia/Blood Transfusion Reactions: No Reported Reaction Smoking Status: Former smoker - Past Family History Mother Family Medical History: Cancer Additional Family Medical History / Comment(s): LUNG AND STOMACH Surgical - Exam Vital Signs Temp Pulse BP 98.1 F 97 124/84 08/03/22 13:39 08/03/22 13:39 08/03/22 13:39 - General well developed, well nourished, no distress - Eyes PERRL - ENT normal pinna - Neck no masses - Respiratory normal expansion - Cardiovascular Rhythm: regular - Abdomen Abdomen: soft, non tender Bariatric Assessment & Plan Plan: Patient's LAP-BAND was adjusted. She had 1 mL added to the band. She currently is 4.7 mL the patient. She'll follow-up in. 4 weeks. Bariatric Checklist Checklist: Plan: Checklist: EGD: 1. Hiatal hernia: 2. H. Pylori: HgbA1c: Vitamin D: Smoking: Current every day smoker Primary care physician referral: Dr Browne Psychiatry clearance: Cardiology clearance: Sleep study: Diet journal: VTE risk score: VTE risk level: Rehab needs at discharge:
== END ==
LOC: BARWHC3 13:27
PROVIDERS: ATTEND Surgery
DX: E66.01 Morbid (severe) obesity due to excess calories (principal); F17.200 Nicotine dependence, unspecified, uncomplicated; J44.9 Chronic obstructive pulmonary disease, unspecified; E78.5 Hyperlipidemia, unspecified; Z46.51 Encounter for fitting and adjustment of gastric lap band; Z98.84 Bariatric surgery status; Z68.35 Body mass index [BMI] 35.0-35.9, adult
CPT/HCPCS: 99212

== ENCOUNTER → 2022-08-17 | Outpatient (CLI) | payer MEDICARE ==
[2022-08-17 13:43] VITALS: BP 128/76; PULSE 106; TEMP 98.5; BMI 35.9
--- NOTE | 2022-09-04 09:43 | P.HPBAR ---
Bariatric H&P - History & Physicial H&P Date: 08/17/22 History & Physicial: Visit/CC: lap band Patient initial contact: Initial weight: 86.409 kg Initial weight in pounds: 190.50 Height: 5 ft 6.75 in Initial BMI: 30.0 Last weight: Current weight: 103.419 kg Current weight in pounds: 228.00 Current BMI: 35.9 [place] body weight (based on NIH guidelines): 60.668 kg Excess body weight loss: The patient is a 67 year-old F who presents for Bariatric Assessment. Patient resents today for [place] follow-up. She's requesting a fill of her LAP-BAND she currently feels hungry. Past Medical History Past Medical History: COPD, Hyperlipidemia Additional Past Medical History / Comment(s): HAS LEAK IN LAPBAND-SEEN BY JASON History of Any Multi-Drug Resistant Organisms: None Reported Past Surgical History: Bariatric Surgery, Section Additional Past Surgical History / Comment(s): lap band 2009. COLONOSCOPY. EGD. C-SEC X 2 Past Anesthesia/Blood Transfusion Reactions: No Reported Reaction Past Psychological History: Anxiety, Depression Smoking Status: Former smoker Past Alcohol Use History: None Reported Additional Past Alcohol Use History / Comment(s): 1/2 pack per day-SINCE AGE 17- QUIT FOR 9 YEARS THEN STARTED UP AGAIN Past Drug Use History: None Reported - Past Family History Mother Family Medical History: Cancer Additional Family Medical History / Comment(s): LUNG AND STOMACH Surgical - Exam Vital Signs Temp Pulse BP 98.5 F 106 H 128/76 08/17/22 13:41 08/17/22 13:41 08/17/22 13:41 - General well developed, well nourished, no distress - Abdomen Abdomen: soft, non tender Bariatric Assessment & Plan Plan: Patient's LAP-BAND was just. She had 1 mL added to the band. She'll follow-up in 4 weeks. Bariatric Checklist Checklist: Plan: Checklist: EGD: 1. Hiatal hernia: 2. H. Pylori: HgbA1c: Vitamin D: Smoking: Current every day smoker Primary care physician referral: Dr Browne Psychiatry clearance: Cardiology clearance: Sleep study: Diet journal: VTE risk score: VTE risk level: Rehab needs at discharge:
== END ==
LOC: BARWHC3 13:22
PROVIDERS: ATTEND Surgery
DX: E66.01 Morbid (severe) obesity due to excess calories (principal); Z68.35 Body mass index [BMI] 35.0-35.9, adult; Z46.51 Encounter for fitting and adjustment of gastric lap band; J44.9 Chronic obstructive pulmonary disease, unspecified; E78.5 Hyperlipidemia, unspecified; F17.200 Nicotine dependence, unspecified, uncomplicated
CPT/HCPCS: 99212

== ENCOUNTER → 2022-08-19 | Outpatient (CLI) | payer MEDICARE ==
[2022-08-19 09:17] VITALS: BP 107/76; PULSE 102; TEMP 98.1; BMI 35.2
--- NOTE | 2022-08-19 09:21 | P.HPBAR ---
Bariatric H&P - History & Physicial H&P Date: 08/19/22 History & Physicial: Visit/CC: lap band follow up Patient initial contact: Initial weight: 86.409 kg Initial weight in pounds: 190.50 Height: 5 ft 6.75 in Initial BMI: 30.0 Last weight: Current weight: 101.151 kg Current weight in pounds: 223.00 Current BMI: 35.2 [place] body weight (based on NIH guidelines): 60.668 kg Excess body weight loss: The patient is a 67 year-old F who presents for Bariatric Assessment. The patient's complaints dysphagia. She's requesting Fluid removed from her band. She's lost 5 pounds since her adjustment 2 days ago. Past Medical History Past Medical History: COPD, Hyperlipidemia Additional Past Medical History / Comment(s): HAS LEAK IN LAPBAND-SEEN BY JASON History of Any Multi-Drug Resistant Organisms: None Reported Past Surgical History: Bariatric Surgery, Section Additional Past Surgical History / Comment(s): lap band 2009. COLONOSCOPY. EGD. C-SEC X 2 Past Anesthesia/Blood Transfusion Reactions: No Reported Reaction Smoking Status: Former smoker - Past Family History Mother Family Medical History: Cancer Additional Family Medical History / Comment(s): LUNG AND STOMACH Surgical - Exam Vital Signs Temp Pulse BP 98.1 F 102 H 107/76 08/19/22 09:14 08/19/22 09:14 08/19/22 09:14 - General well developed, well nourished, no distress - Eyes PERRL - ENT normal pinna - Neck no masses - Respiratory normal expansion - Cardiovascular Rhythm: regular - Abdomen Abdomen: soft, non tender Bariatric Assessment & Plan Plan: Patient LAP-BAND was adjusted. She had 0.5 mL removed from her band. She'll follow-up in 4 weeks. Bariatric Checklist Checklist: Plan: Checklist: EGD: 1. Hiatal hernia: 2. H. Pylori: HgbA1c: Vitamin D: Smoking: Current every day smoker Primary care physician referral: Dr Browne Psychiatry clearance: Cardiology clearance: Sleep study: Diet journal: VTE risk score: VTE risk level: Rehab needs at discharge:
== END ==
LOC: BARWHC3 09:01
PROVIDERS: ATTEND Surgery
DX: E66.01 Morbid (severe) obesity due to excess calories (principal); J44.9 Chronic obstructive pulmonary disease, unspecified; F17.200 Nicotine dependence, unspecified, uncomplicated; E78.5 Hyperlipidemia, unspecified; Z68.30 Body mass index [BMI] 30.0-30.9, adult; Z98.84 Bariatric surgery status; Z46.51 Encounter for fitting and adjustment of gastric lap band
CPT/HCPCS: 99212

== ENCOUNTER → 2022-12-22 | Outpatient (CLI) | payer MEDICARE ==
--- NOTE | 2022-12-23 20:08 | MM ---
Reason for Exam: Screening (asymptomatic). Last mammogram was performed 1 year(s) and 1 month(s) ago. Patient History: Menarche at age 13. First Full-Term at age 30. Postmenopausal. Currently using Progesterone, starting at age 61. Benign Excisional Biopsy on the right side. Risk Values: Marcela 5 year model risk: 2.2%. NCI Lifetime model risk: 7.9%. Prior Study Comparison: 02/23/2019 Bilateral Screening Mammogram, [facility]. 03/07/2019 Bilateral Diagnostic Mammogram, [facility]. 11/14/2021 Bilateral MG screening mammo w CAD, [facility]. Tissue Density: There are scattered fibroglandular densities. Findings: Analyzed By CAD. On the right, low density nodularity 2 to 3:00 position posterior depth appears new. Further evaluation is recommended. On the right MLO view, nodularity anterior depth just above the retroareolar plane also appears to be new but no correlate is seen on the CC view. Further evaluation is recommended. In the left breast, central inner asymmetric density at a posterior depth on the cc view appears more defined. Further evaluation recommended. Overall Assessment: Incomplete: need additional imaging evaluation, BI-RAD 0 Management: Special View Mammogram of both breasts. Diagnostic Breast Ultrasound of both breasts. 1. Additional views right breast to include spot 3-D CC, spot 3-D MLO (2 sites), and 3-D lateral views. 2. Additional views left breast to include spot 3-D CC, 3-D CC rolled, and 3-D LM views. 3. Targeted ultrasound of either breast if any persisting abnormality. [facility] will attempt to contact patient to return for supplemental views and ultrasound if indicated. Electronically signed and approved by: Balwinder Rubio M.D. Radiologist
== END | disposition home or self-care (01) ==
LOC: RADMAMWWP 13:25
PROVIDERS: ATTEND Family Medicine
DX: Z12.31 Encounter for screening mammogram for malignant neoplasm of breast (principal); Z78.0 Asymptomatic menopausal state
CPT/HCPCS: 77063; 77067

== ENCOUNTER → 2022-12-29 | Outpatient (CLI) | payer MEDICARE ==
--- NOTE | 2022-12-29 10:43 | MM ---
Reason for Exam: Additional evaluation requested from abnormal screening. Last screening mammogram was performed less than 1 month ago. Patient History: Menarche at age 13. First Full-Term at age 30. Postmenopausal. Currently using Progesterone, starting at age 61. Benign Excisional Biopsy on the right side. Risk Values: Marcela 5 year model risk: 2.2%. NCI Lifetime model risk: 7.9%. Prior Study Comparison: 11/14/2021 Bilateral MG screening mammo w CAD, [facility]. 12/22/2022 Bilateral MG 3D screening mammo w/cad, [facility]. Tissue Density: The breast tissue is heterogeneously dense. This may lower the sensitivity of mammography. Findings: Analyzed By CAD. Asymmetry left breast comparison spot compression imaging. Right breast medial lesion on cc view posterior depth measuring 9 mm 9.0 cm from nipple remains. Overall Assessment: Incomplete: need additional imaging evaluation, BI-RAD 0 Management: Diagnostic Breast Ultrasound of the right breast. Results were given to the patient verbally at the time of exam. Patient should continue monthly self-breast exams. A clinical breast exam by your physician is recommended on an annual basis. This exam should not preclude additional follow-up of suspicious palpable abnormalities. Note on Marcela scores and lifetime risk: 1. A Marcela score greater than 3% is considered moderate risk. If this is the case, consider specialist referral to assess eligibility for a risk reducing agent. 2. If overall lifetime risk for the development of breast cancer is 20% or higher, the patient may qualify for future screening with alternating mammogram and breast MRI. Electronically signed and approved by: Mckinley Piedra DO
--- NOTE | 2022-12-29 11:08 | USB ---
Reason for Exam: Additional evaluation requested from abnormal screening. Patient History: Menarche at age 13. First Full-Term at age 30. Postmenopausal. Currently using Progesterone, starting at age 61. Benign Excisional Biopsy on the right side. Risk Values: Marcela 5 year model risk: 2.2%. NCI Lifetime model risk: 7.9%. Technique: Method: Targeted. Prior Study Comparison: 03/07/2019 Bilateral Diagnostic Mammogram, [facility]. 11/14/2021 Bilateral MG screening mammo w CAD, [facility]. 12/22/2022 Bilateral MG 3D screening mammo w/cad, [facility]. Findings: The upper inner quadrant of the right breast, the lower inner quadrant of the right breast, the axilla of the right breast and the retroareolar of the right breast were scanned. Technique utilized:US breast workup limited RT Image; Ultrasound imaging of: Area of concern, retroareolar region and axilla. Imaging of the medial half of the breast was performed. No suspicious mass. No evidence for organizing fluid collection or mass. Overall Assessment: Probably benign, BI-RAD 3 Management: Diagnostic Mammogram of the right breast in 6 months. Short-term follow-up mammography given no findings seen on ultrasound. A clinical breast exam by your physician is recommended on an annual basis and results should be correlated with mammographic findings. This exam should not preclude additional follow-up of suspicious palpable abnormalities. Results were given to the patient verbally at the time of exam. Electronically signed and approved by: Mckinley Piedra DO
== END | disposition home or self-care (01) ==
LOC: RADMAMWWP 10:07
PROVIDERS: ATTEND Family Medicine
DX: R92.333 Mammographic heterogeneous density, bilateral breasts (principal); Z78.0 Asymptomatic menopausal state
CPT/HCPCS: 77066; 76642; G0279; 77062

== ENCOUNTER 2023-02-04 14:19 | Emergency (ER) | payer MEDICARE ==
--- NOTE | 2023-02-04 17:33 | ED ---
General Adult HPI - General Source: patient Mode of arrival: ambulatory Limitations: no limitations <Abhishek Cee - Last Filed: 02/04/23 17:33> <Amber Starks - Last Filed: 02/05/23 04:51> - General Chief complaint: Nausea/Vomiting/Diarrhea Stated complaint: Abn Labs, N/V - History of Present Illness Initial comments: 7-year-old female presenting to the ED with a chief complaint of abdominal pain. Patient had a lap band performed by Dr. Felix. Notes over the past 3 months has had difficulty with swallowing solid foods however more recently has had difficulty with liquids as well. States after she drinks or eats immediately vomits. Also notes some abdominal pain. Secondary to this, Dr. Felix advised the patient to present to the ED for further evaluation. (Abhishek Cee) 67-year-old female presenting with chief complaint of abdominal pain. Patient states recently whenever she eats or drinks she immediately vomits. She has history of a lap band performed by Dr. Felix. She has been seeing him in the office and he has been adjusting the amount of fluid in her lap band. She admits to diffuse abdominal discomfort. No flank pain. No hematochezia or melena. No dysuria, hematuria, fever, chills, chest pain, difficulty breathing. Patient was advised by Dr. Felix to report to the ER for further evaluation. (Amber Starks) - Related Data Home Medications Medication Instructions Recorded Confirmed Beclomethasone Dipropionate [Qvar 2 puff INHALATION RT-BID 03/29/18 02/04/23 40 mcg Redihaler] Eszopiclone [Lunesta] 1 mg PO HS 07/20/22 02/04/23 ALPRAZolam [Xanax] 0.5 mg PO TID PRN 02/04/23 02/04/23 Tiotropium 2.5 Mcg/Puff [Spiriva 1 puff INHALATION RT-DAILY 02/04/23 02/04/23 Respimat 2.5 Mcg] Venlafaxine HCl [Effexor XR] 225 mg PO DAILY 02/04/23 02/04/23 Previous Rx's Medication Instructions Recorded Cephalexin [Keflex] 500 mg PO Q12HR 10 Days #20 cap 02/05/23 Ondansetron Odt [Zofran Odt] 4 mg PO Q8HR PRN #20 tab 02/05/23 Allergies Allergy/AdvReac Type Severity Reaction Status Date / Time No Known Allergies Allergy Verified 02/04/23 22:35 Review of Systems ROS Other: All systems not noted in ROS Statement are negative. <Abhishek Cee - Last Filed: 02/04/23 17:33> ROS Other: All systems not noted in ROS Statement are negative. <Amber Starks - Last Filed: 02/05/23 04:51> ROS Statement: Those systems with pertinent positive or pertinent negative responses have been documented in the HPI. Past Medical History Past Medical History: COPD, Hyperlipidemia Additional Past Medical History / Comment(s): HAS LEAK IN LAPBAND-SEEN BY JASON History of Any Multi-Drug Resistant Organisms: None Reported Past Surgical History: Bariatric Surgery, Section Additional Past Surgical History / Comment(s): lap band 2010. COLONOSCOPY. EGD. C-SEC X 2 Past Anesthesia/Blood Transfusion Reactions: No Reported Reaction Past Psychological History: Anxiety, Depression Smoking Status: Former smoker Past Alcohol Use History: None Reported Past Drug Use History: None Reported - Past Family History Mother Family Medical History: Cancer Additional Family Medical History / Comment(s): LUNG AND STOMACH <Abhishek Cee - Last Filed: 02/04/23 17:33> General Exam Limitations: no limitations <Abhishek Cee - Last Filed: 02/04/23 17:33> Limitations: no limitations General appearance: alert, in no apparent distress Head exam: Present: atraumatic, normocephalic Eye exam: Present: normal appearance Neck exam: Present: normal inspection Respiratory exam: Present: normal lung sounds bilaterally. Absent: respiratory distress, wheezes, rales, rhonchi, stridor Cardiovascular Exam: Present: regular rate, normal rhythm, normal heart sounds. Absent: systolic murmur, diastolic murmur, rubs, gallop, clicks GI/Abdominal exam: Present: soft, tenderness (Diffuse discomfort). Absent: dist ended, guarding, rebound, rigid Neurological exam: Present: alert, oriented X3 Psychiatric exam: Present: normal affect, normal mood Skin exam: Present: warm, dry <Amber Starks - Last Filed: 02/05/23 04:51> - General Exam Comments Initial Comments: Visual Physical Exam Vital signs reviewed General: Well-appearing, nontoxic, no acute distress. Head: Normocephalic, atraumatic Eyes: PERRLA, EOMI ENT: Airway patent Chest: Nonlabored breathing Skin: No visual rash, normal skin tone Neuro: Alert and oriented 3 Musculoskeletal: No gross abnormalities (Abhishek Cee) Course Vital Signs 02/04/23 02/04/23 02/04/23 17:19 21:28 23:33 Temperature 98.1 F 97.6 F Pulse Rate 104 H 97 97 Respiratory 22 18 17 Rate Blood Pressure 133/83 116/62 111/63 O2 Sat by Pulse 99 93 L 98 Oximetry Medical Decision Making <Abhishek Cee - Last Filed: 02/04/23 17:33> - Lab Data Result diagrams: 02/04/23 21:20 02/04/23 21:20 <Amber Starks - Last Filed: 02/05/23 04:51> - Medical Decision Making Quicknote portion performed. Signed Abhishek Cee PA-C (Abhishek Cee) Was pt. sent in by a medical professional or institution (, PA, ACQUISITION SPECIALIST, urgent care, hospital, or retirement...) When possible be specific @ -Sent by her surgeon Dr. Felix Did you speak to anyone other than the patient for history (EMS, parent, family, police, friend...)? What history was obtained from this source @ -No Did you review nursing and triage notes (agree or disagree)? Why? @ -I reviewed and agree with nursing and triage notes Were old charts reviewed (outside hosp., previous admission, EMS record, old EKG, old radiological studies, urgent care reports/EKG's, retirement records)? Report findings @ -No old charts were reviewed Differential Diagnosis (chest pain, altered mental status, abdominal pain women, abdominal pain men, vaginal bleeding, weakness, fever, dyspnea, syncope, headache, dizziness, GI bleed, back pain, seizure, CVA, palpatations, mental health, musculoskeletal)? @ -[facility] Differential Abdominal Pain Women: Appendicitis, Cholecystitis, diverticulosis, ischemic bowel, pancreatitis, hepatitis, UTI, gastroenteritis, AAA, incarcerated hernia, bowel obstruction, constipation, inflammatory bowel, hepatitis, peptic ulcer disease, splenic infarction, perforated viscus, vulvitis, ovarian torsion, PID, kidney stone, benjy centa abruption... This is not meant to be an all-inclusive list EKG interpreted by me (3pts min.). @ -As above X-rays interpreted by me (1pt min.). @ -None done CT interpreted by me (1pt min.). @ -CT shows mild distal esophageal wall thickening may reflect esophagitis. Mild wall thickening in the terminal ileum and cecal base, raising the possibility of infectious or inflammatory enterocolitis U/S interpreted by me (1pt. min.). @ -None done What testing was considered but not performed or refused? (CT, X-rays, U/S, labs)? Why? @ -None What meds were considered but not given or refused? Why? @ -None Did you discuss the management of the patient with other professionals (professionals i.e. , PA, ACQUISITION SPECIALIST, lab, RT, psych nurse, psychosocial rehabilitation counselor, card grinder, teacher, property and supply officer, showcase maker)? Give summary @ -No Was smoking cessation discussed for >3mins.? @ -No Was critical care preformed (if so, how long)? @ -No Were there social determinants of health that impacted care today? How? (Homelessness, low income, unemployed, alcoholism, drug addiction, transportation, low edu. Level, literacy, decrease access to med. care, usp, rehab)? @ -No Was there de-escalation of care discussed even if they declined (Discuss DNR or withdrawal of care, Hospice)? DNR status @ -No What co-morbidities impacted this encounter? (DM, HTN, Smoking, COPD, CAD, Cancer, CVA, ARF, Chemo, Hep., AIDS, mental health diagnosis, sleep apnea, morbid obesity)? @ -None Was patient admitted / discharged? Hospital course, mention meds given and route, prescriptions, significant lab abnormalities, going to OR and other pertinent info. @ -67-year-old female presented with chief complaint of abdominal pain, nausea, vomiting. History and physical exam were conducted. Patient has diffuse abdominal discomfort on palpation of the abdomen. WBC 10.9. Urine is positive for UTI. ALT 49. Glucose 116. CT is positive for possible enterocolitis and esophagitis. Patient will be treated for UTI with Keflex. She is instructed to follow-up with her surgeon regarding CT findings. Follow-up with PCP. Report back to ER with any new or worsening symptoms. Discussed return parameters and answered all questions. Patient conveyed verbal understanding and agreed to the plan. I discussed this case in detail with my attending Dr. Terrell Undiagnosed new problem with uncertain prognosis? @ -No Drug Therapy requiring intensive monitoring for toxicity (Heparin, Nitro, Insulin, Cardizem)? @ -No Were any procedures done? @ -No Diagnosis/symptom? @ -UTI, terminal ileitis Acute, or Chronic, or Acute on Chronic? @ -Acute Uncomplicated (without systemic symptoms) or Complicated (systemic symptoms)? @ -complicated Side effects of treatment? @ -No Exacerbation, Progression, or Severe Exacerbation? @ -No (Amber Starks) - Lab Data Lab Results 02/04/23 02/04/23 02/04/23 Range/Units 21:20 21:20 21:20 WBC 10.9 H (3.8-10.6) k/uL RBC 4.90 (3.80-5.40) m/uL Hgb 14.7 (11.4-16.0) gm/dL Hct 44.2 (34.0-46.0) % MCV 90.2 (80.0-100.0) fL MCH 30.0 (25.0-35.0) pg MCHC 33.3 (31.0-37.0) g/dL RDW 12.7 (11.5-15.5) % Plt Count 278 (150-450) k/uL MPV 8.0 Neutrophils % 83 % Lymphocytes % 11 % Monocytes % 3 % Eosinophils % 1 % Basophils % 1 % Neutrophils # 9.0 H (1.3-7.7) k/uL Lymphocytes # 1.2 (1.0-4.8) k/uL Monocytes # 0.3 (0-1.0) k/uL Eosinophils # 0.2 (0-0.7) k/uL Basophils # 0.1 (0-0.2) k/uL Sodium 136 L (137-145) mmol/L Potassium 3.9 (3.5-5.1) mmol/L Chloride 102 (98-107) mmol/L Carbon Dioxide 22 (22-30) mmol/L Anion Gap 12 mmol/L BUN 9 (7-17) mg/dL Creatinine 0.62 (0.52-1.04) mg/dL Est GFR (CKD-EPI)AfAm >90 (>60 ml/min/1.73 sqM) Est GFR (CKD-EPI)NonAf >90 (>60 ml/min/1.73 sqM) Glucose 116 H (74-99) mg/dL Calcium 8.9 (8.4-10.2) mg/dL Total Bilirubin 1.0 (0.2-1.3) mg/dL AST 35 (14-36) U/L ALT 49 H (4-34) U/L Alkaline Phosphatase 115 (38-126) U/L Total Protein 7.3 (6.3-8.2) g/dL Albumin 4.1 (3.5-5.0) g/dL Amylase 58 (30-110) U/L Lipase 26 (23-300) U/L Urine Color Dark Yellow Urine Appearance Clear (Clear) Urine pH 5.0 (5.0-8.0) Ur Specific [place] 1.029 (1.001-1.035) Urine Protein Negative (Negative) Urine Glucose (UA) Negative (Negative) Urine Ketones Trace H (Negative) Urine Blood Negative (Negative) Urine Nitrite Negative (Negative) Urine Bilirubin Negative (Negative) Urine Urobilinogen 0.2 (<2.0) mg/dL Ur Leukocyte Esterase Small H (Negative) Urine RBC 20 H (0-5) /hpf Urine WBC 115 H (0-5) /hpf Ur Squamous Epith Cells 29 H (0-4) /hpf Urine Mucus Many H (None) /hpf Disposition <Abhishek Cee - Last Filed: 02/04/23 17:33> Is patient prescribed a controlled substance at d/c from ED?: No Time of Disposition: 00:19 <Amber tSarks - Last Filed: 02/05/23 04:51> Clinical Impression: UTI (urinary tract infection), Enterocolitis Disposition: HOME SELF-CARE Condition: Good Instructions (If sedation given, give patient instructions): Urinary Tract Infection in Women (ED) Additional Instructions: Follow-up with PCP and surgeon. Report back to ER with any new or worsening symptoms. Prescriptions: Cephalexin [Keflex] 500 mg PO Q12HR 10 Days #20 cap Ondansetron Odt [Zofran Odt] 4 mg PO Q8HR PRN #20 tab PRN Reason: Nausea Referrals: Julian Browne DO [Primary Care Provider] - 1-2 days
[2023-02-04] MEDS ORDERED: SODIUM CHLORIDE 0.9% 1,000 ML IV ONE (21:09)
[2023-02-04] MEDS ORDERED: ONDANSETRON 4 MG/2 ML VIAL IVP STA (21:09)
[2023-02-04 21:43] LABS: Basophils # (A) 0.1 k/uL (0-0.2); Basophils % (A) 1 %; Eosinophils # (A) 0.2 k/uL (0-0.7); Eosinophils % (A) 1 %; HCT 44.2 % (34.0-46.0); HGB 14.7 gm/dL (11.4-16.0); Lymphocytes # (A) 1.2 k/uL (1.0-4.8); Lymphocytes % (A) 11 %; MCHC 33.3 g/dL (31.0-37.0); MCV 90.2 fL (80.0-100.0); Monocytes # (A) 0.3 k/uL (0-1.0); Monocytes % (A) 3 %; Neutrophils % (A) 83 %; Platelet Count 278 k/uL (150-450); RDW 12.7 % (11.5-15.5); WBC 10.9 k/uL (3.8-10.6)
[2023-02-04 21:45] VITALS: PULSE 97; TEMP 97.6
[2023-02-04 21:52] LABS: ALT 49 U/L (4-34); AST 35 U/L (14-36); African American GFR (CKD) >90 (>60 ml/min/1.73 sqM); Albumin 4.1 g/dL (3.5-5.0); Alkaline Phosphatase 115 U/L (38-126); Amylase 58 U/L (30-110); Anion Gap 12 mmol/L; Blood Urea Nitrogen 9 mg/dL (7-17); Calcium 8.9 mg/dL (8.4-10.2); Carbon Dioxide 22 mmol/L (22-30); Chloride 102 mmol/L (98-107); Glucose 116 mg/dL (74-99); Lipase 26 U/L (23-300); Non-African American GFR(CKD) >90 (>60 ml/min/1.73 sqM); Potassium 3.9 mmol/L (3.5-5.1); Sodium 136 mmol/L (137-145); Total Protein 7.3 g/dL (6.3-8.2)
[2023-02-04 22:27] LABS: Mucus,Urine Many /hpf; RBC,Urine 20 /hpf (0-5); Squamous Epithelial Cell,Urine 29 /hpf (0-4); WBC,Urine 115 /hpf (0-5)
[2023-02-04 22:41] LABS: Appearance,Urine Clear (Clear)
[2023-02-04 22:42] LABS: Bilirubin,Urine Negative (Negative); Glucose,Urine (UA) Negative (Negative); Ketones,Urine Trace (Negative); Protein,Urine Negative (Negative); Specific Gravity,Urine 1.029 (1.001-1.035)
[2023-02-04 22:43] LABS: Blood,Urine Negative (Negative); Color,Urine Dark Yellow; Leukocyte Esterase,Urine Small (Negative); Nitrite,Urine Negative (Negative); Urobilinogen,Urine 0.2 mg/dL (<2.0)
--- NOTE | 2023-02-04 23:17 | CT ---
EXAM: CT Abdomen and Pelvis With Intravenous Contrast CLINICAL HISTORY: ITS.REASON CT Reason: hx lap band. nausea, vomiting, abdominal pain TECHNIQUE: Axial computed tomography images of the abdomen and pelvis with intravenous contrast. CTDI is 33.2 mGy and DLP is 1500.6 mGy-cm. This CT exam was performed using one or more of the following dose reduction techniques: automated exposure control, adjustment of the mA and/or kV according to patient size, and/or use of iterative reconstruction technique. COMPARISON: 09/09/10 FINDINGS: Lung bases: Unremarkable. No mass. No consolidation. Mediastinum: Mild distal esophageal wall thickening may reflect esophagitis. ABDOMEN: Liver: Unremarkable. No mass. Gallbladder and bile ducts: Unremarkable. No calcified stones. No ductal dilation. Pancreas: Fatty replacement of the pancreas. No ductal dilation. Spleen: Unremarkable. No splenomegaly. Adrenals: Unremarkable. No mass. Kidneys and ureters: Numerous simple parapelvic renal cysts, small in size; no further follow-up required. Symmetric renal enhancement. No hydronephrosis. Stomach and bowel: Wall thickening in the terminal ileum and cecal base. No bowel obstruction. PELVIS: Appendix: Normal appendix. Bladder: Unremarkable. No mass. Reproductive: Unremarkable as visualized. ABDOMEN and PELVIS: Intraperitoneal space: Unremarkable. No free air. No significant fluid collection. Bones/joints: No acute fracture. No dislocation. Soft tissues: Small fat-containing umbilical hernia. Vasculature: Mild aortoiliac atherosclerosis. No aneurysm. Lymph nodes: Unremarkable. No enlarged lymph nodes. Tubes, lines and devices: Gastric lap band in place. IMPRESSION: 1. Mild distal esophageal wall thickening may reflect esophagitis. 2. Mild wall thickening in the terminal ileum and cecal base, raising the possibility of infectious or inflammatory enterocolitis.
[2023-02-04 23:38] VITALS: BP 111/63; RESP 17
== END 2023-02-05 00:35 | disposition home or self-care (01) ==
LOC: EC 14:19
DX: K52.9 Noninfective gastroenteritis and colitis, unspecified (principal); N39.0 Urinary tract infection, site not specified; J44.9 Chronic obstructive pulmonary disease, unspecified; F41.9 Anxiety disorder, unspecified; F32.A Depression, unspecified; Z79.899 Other long term (current) drug therapy; Z87.891 Personal history of nicotine dependence; Z79.51 Long term (current) use of inhaled steroids
CPT/HCPCS: 36415; 93005; 80053; 82150; 83690; 85025; 81001; 74177; 99284; 96374; 96361 ×2; J2405; Q9967

== ENCOUNTER → 2023-02-04 | Outpatient (CLI) | payer MEDICARE ==
[2023-02-04 13:02] VITALS: BP 134/60; PULSE 107; RESP 16; TEMP 98.3; BMI 39.0
--- NOTE | 2023-02-04 14:54 | P.BASOAP ---
Subjective Progress Note Date: 02/04/23 Principal diagnosis: Dysphagia Patient comes to the bariatric center with complaints of dysphagia. Apparently has had difficulty with solids for several months and has not tolerated most liquids for the last 3 weeks. Over the last 2 days she has had trouble with water. She said she felt like she had chills. She took a Covid test at home and this was negative. She felt feverish. She is afebrile here. She is tachycardic 107. Denies abdominal pain. Had her lap band port replaced she believes in 2018. She has 5.2 mL in her band. Objective - Vital Signs Vital signs: Vital Signs Temp 98.3 F 02/04/23 12:51 Pulse 107 H 02/04/23 12:51 Resp 16 02/04/23 12:51 BP 134/60 02/04/23 12:51 Pulse Ox FiO2 Intake & Output 02/03/23 02/04/23 02/04/23 18:59 06:59 18:59 Weight 99.201 kg - Exam Abdomen: Soft, nontender, nondistended Assessment/Plan (1) Dysphagia Narrative/Plan: Patient clearly has significant dysphasia with indwelling LAP-BAND. Recommend emptying band at this time. Given the patient's tachycardia and overall appearance recommend ER evaluation with possible admission. Patient says she had some recent elevated liver enzymes that there working up. Patient should have further evaluation including possible esophagram EGD or CT abdomen. Will empty band at this time. She was sent to the ER triage from here. Discussed case with ER staff. The patient's lap band port was palpated. The site was aseptically prepped. The [place] needle was advanced into the port. A total of 5 ml of fluid was removed. Pressure was held and a sterile dressing was applied. Plan: Date: 02/04/23 Initial Weight: 86.409 kg Initial BMI: 34.0 Current Weight: 99.201 kg Current BMI: 39.0 Type of Surgery: Total Volume in Band: 5.2 Previous Volume: Volume Removed: Volume Added: Band Size:
== END ==
LOC: BARWHC3 12:36
PROVIDERS: ATTEND Surgery
DX: R13.10 Dysphagia, unspecified (principal); E66.01 Morbid (severe) obesity due to excess calories; F17.200 Nicotine dependence, unspecified, uncomplicated; R00.0 Tachycardia, unspecified; Z20.822 Contact with and (suspected) exposure to COVID-19; Z46.51 Encounter for fitting and adjustment of gastric lap band; Z98.84 Bariatric surgery status; Z68.39 Body mass index [BMI] 39.0-39.9, adult
CPT/HCPCS: 99212

== ENCOUNTER 2023-02-28 07:29 | Emergency (ER) | payer MEDICARE ==
[2023-02-28 07:37] VITALS: PULSE 94; TEMP 98.1
[2023-02-28] MEDS ORDERED: SODIUM CHLORIDE 0.9% 500 ML 500 ML IV ONE (07:47)
[2023-02-28] MEDS ORDERED: ONDANSETRON 4 MG/2 ML VIAL IVP STA (07:47)
[2023-02-28] MEDS ORDERED: PANTOPRAZOLE 40 MG/10 ML VIAL IVP STA (07:47)
[2023-02-28] MEDS ORDERED: HYDROmorphone 0.5 MG/0.5 ML SYRINGE IVP STA (07:47)
--- NOTE | 2023-02-28 07:49 | ED ---
General Adult HPI - General Chief complaint: Abdominal Pain Stated complaint: lower back pain Time Seen by Provider: 02/28/23 07:33 Source: patient, RN notes reviewed, old records reviewed Mode of arrival: wheelchair Limitations: no limitations - History of Present Illness Initial comments: 67-year-old female presents for evaluation of lower abdominal pain and nausea. Patient states she's having trouble moving her bowels. She states she had a small bowel movement yesterday but this required a Fleet enema. She states that she previously had a diarrheal illness has resolved. She also complains of nausea. No fever. She states she had similar symptoms approximately 3 weeks ago and was seen in the emergency department and had laboratory testing and CT abdomen and pelvis. - Related Data Home Medications Medication Instructions Recorded Confirmed Beclomethasone Dipropionate [Qvar 2 puff INHALATION RT-BID 03/29/18 02/04/23 40 mcg Redihaler] Eszopiclone [Lunesta] 1 mg PO HS 07/20/22 02/04/23 ALPRAZolam [Xanax] 0.5 mg PO TID PRN 02/04/23 02/04/23 Tiotropium 2.5 Mcg/Puff [Spiriva 1 puff INHALATION RT-DAILY 02/04/23 02/04/23 Respimat 2.5 Mcg] Venlafaxine HCl [Effexor XR] 225 mg PO DAILY 02/04/23 02/04/23 Previous Rx's Medication Instructions Recorded Cephalexin [Keflex] 500 mg PO Q12HR 10 Days #20 cap 02/05/23 Ondansetron Odt [Zofran Odt] 4 mg PO Q8HR PRN #20 tab 02/05/23 Allergies Allergy/AdvReac Type Severity Reaction Status Date / Time No Known Allergies Allergy Verified 02/28/23 07:36 Review of Systems ROS Statement: Those systems with pertinent positive or pertinent negative responses have been documented in the HPI. ROS Other: All systems not noted in ROS Statement are negative. Past Medical History Past Medical History: COPD, Hyperlipidemia Additional Past Medical History / Comment(s): HAS LEAK IN LAPBAND-SEEN BY JASON History of Any Multi-Drug Resistant Organisms: None Reported Past Surgical History: Bariatric Surgery, Section Additional Past Surgical History / Comment(s): lap band 2009. COLONOSCOPY. EGD. C-SEC X 2 Past Anesthesia/Blood Transfusion Reactions: No Reported Reaction Past Psychological History: Anxiety, Depression Smoking Status: Former smoker Past Alcohol Use History: None Reported Past Drug Use History: None Reported - Past Family History Mother Family Medical History: Cancer Additional Family Medical History / Comment(s): LUNG AND STOMACH General Exam Limitations: no limitations General appearance: alert, in no apparent distress Head exam: Present: atraumatic, normocephalic Eye exam: Present: normal appearance, PERRL ENT exam: Present: mucous membranes dry Neck exam: Present: normal inspection. Absent: tenderness, meningismus Respiratory exam: Present: normal lung sounds bilaterally. Absent: respiratory distress, wheezes Cardiovascular Exam: Present: regular rate, normal rhythm GI/Abdominal exam: Present: soft, tenderness. Absent: distended, guarding, rebound Neurological exam: Present: alert, oriented X3, CN II-XII intact. Absent: motor sensory deficit Psychiatric exam: Present: normal affect, normal mood Skin exam: Present: warm, dry, intact. Absent: cyanosis, diaphoretic Course Vital Signs 02/28/23 07:32 Temperature 98.1 F Pulse Rate 94 Respiratory 20 Rate Blood Pressure 139/85 O2 Sat by Pulse 97 Oximetry Medical Decision Making - Medical Decision Making Was pt. sent in by a medical professional or institution (, PA, METAL WORK DUCT INSTALLER, urgent care, hospital, or skilled nursing...) When possible be specific @ -No Did you speak to anyone other than the patient for history (EMS, parent, family, police, friend...)? What history was obtained from this source @ -No Did you review nursing and triage notes (agree or disagree)? Why? @ -I reviewed and agree with nursing and triage notes Were old charts reviewed (outside hosp., previous admission, EMS record, old EKG, old radiological studies, urgent care reports/EKG's, skilled nursing records)? Report findings @ -No old charts were reviewed Differential Diagnosis (chest pain, altered mental status, abdominal pain women, abdominal pain men, vaginal bleeding, weakness, fever, dyspnea, syncope, headache, dizziness, GI bleed, back pain, seizure, CVA, palpatations, mental health, musculoskeletal)? @ -Differential Abdominal Pain Women: Appendicitis, Cholecystitis, diverticulosis, ischemic bowel, pancreatitis, hepatitis, UTI, gastroenteritis, AAA, incarcerated hernia, bowel obstruction, constipation, inflammatory bowel, hepatitis, peptic ulcer disease, splenic infarction, perforated viscus, vulvitis, ovarian torsion, PID, kidney stone, placenta abruption, this is not meant to be an all-inclusive list EKG interpreted by me (3pts min.). @ Sinus rhythm rate of 85, WY interval 142, QRS duration 88, QTC [address] segment changes. X-rays interpreted by me (1pt min.). @ KUB negative for obstruction or intraperitoneal free air CT interpreted by me (1pt min.). @ -None done U/S interpreted by me (1pt. min.). @ Ultrasound negative for acute gallbladder pathology What testing was considered but not performed or refused? (CT, X-rays, U/S, labs)? Why? @ -None What meds were considered but not given or refused? Why? @ -None Did you discuss the management of the patient with other professionals (pro fessionals i.e. , PA, METAL WORK DUCT INSTALLER, lab, RT, psych nurse, oncology social work, bandage winding machine operator, teacher, sewage reticulation drafting officer, egg caser)? Give summary @ -No Was smoking cessation discussed for >3mins.? @ -No Was critical care preformed (if so, how long)? @ -No Were there social determinants of health that impacted care today? How? (Homelessness, low income, unemployed, alcoholism, drug addiction, transporta tion, low edu. Level, literacy, decrease access to med. care, senior living, rehab)? @ -No Was there de-escalation of care discussed even if they declined (Discuss DNR or withdrawal of care, Hospice)? DNR status @ -No What co-morbidities impacted this encounter? (DM, HTN, Smoking, COPD, CAD, Cancer, CVA, ARF, Chemo, Hep., AIDS, mental health diagnosis, sleep apnea, morbid obesity)? @ -None Was patient admitted / discharged? Hospital course, mention meds given and route, prescriptions, significant lab abnormalities, going to OR and other pertinent info. @ 67 female with abdominal pain which seems to localize to the right upper quadrant. Workup reveals very mildly elevated ALT and alkaline phosphatase. Ultrasound is negative. She has a leukocytosis of 13. Otherwise workup is unremarkable. We did discuss continued outpatient follow-up with her general surgeon and planned colonoscopy as well as EGD. Return parameters were discussed. Undiagnosed new problem with uncertain prognosis? @ -No Drug Therapy requiring intensive monitoring for toxicity (Heparin, Nitro, Insulin, Cardizem)? @ -No Were any procedures done? @ -No Diagnosis/symptom? @ -Abdominal pain Acute, or Chronic, or Acute on Chronic? @ -default Uncomplicated (without systemic symptoms) or Complicated (systemic symptoms)? @ -default Side effects of treatment? @ -No Exacerbation, Progression, or Severe Exacerbation? @ -No Poses a threat to life or bodily function? How? (Chest pain, [place], [place], pneumonia, PE, COPD, DKA, ARF, appy, cholecystitis, CVA, Diverticulitis, Homicidal, Suicidal, threat to staff... and all critical care pts) @ -Low risk at this time - Lab Data Result diagrams: 02/28/23 08:05 02/28/23 08:05 Lab Results 02/28/23 02/28/23 02/28/23 Range/Units 08:05 08:05 08:05 WBC 13.2 H (3.8-10.6) k/uL RBC 4.80 (3.80-5.40) m/uL Hgb 14.2 (11.4-16.0) gm/dL Hct 43.9 (34.0-46.0) % MCV 91.5 (80.0-100.0) fL MCH 29.6 (25.0-35.0) pg MCHC 32.3 (31.0-37.0) g/dL RDW 12.9 (11.5-15.5) % Plt Count 367 (150-450) k/uL MPV 8.3 Neutrophils % 76 % Lymphocytes % 17 % Monocytes % 6 % Eosinophils % 1 % Basophils % 0 % Neutrophils # 10.0 H (1.3-7.7) k/uL Lymphocytes # 2.2 (1.0-4.8) k/uL Monocytes # 0.8 (0-1.0) k/uL Eosinophils # 0.2 (0-0.7) k/uL Basophils # 0.0 (0-0.2) k/uL PT 10.5 (10.0-12.5) sec INR 0.9 (<1.2) APTT 25.9 (22.0-30.0) sec Sodium (137-145) mmol/L Potassium (3.5-5.1) mmol/L Chloride (98-107) mmol/L Carbon Dioxide (22-30) mmol/L Anion Gap mmol/L BUN (7-17) mg/dL Creatinine (0.52-1.04) mg/dL Est GFR (CKD-EPI)AfAm (>60 ml/min/1.73 sqM) Est GFR (CKD-EPI)NonAf (>60 ml/min/1.73 sqM) Glucose (74-99) mg/dL Plasma Lactic Acid Moy (0.7-2.0) mmol/L Calcium (8.4-10.2) mg/dL Total Bilirubin (0.2-1.3) mg/dL AST (14-36) U/L ALT (4-34) U/L Alkaline Phosphatase (38-126) U/L Troponin I (0.000-0.034) ng/mL Total Protein (6.3-8.2) g/dL Albumin (3.5-5.0) g/dL Amylase (30-110) U/L Lipase (23-300) U/L Urine Color Yellow Urine Appearance Clear (Clear) Urine pH 7.0 (5.0-8.0) Ur Specific [place] 1.016 (1.001-1.035) Urine Protein Negative (Negative) Urine Glucose (UA) Negative (Negative) Urine Ketones Negative (Negative) Urine Blood Negative (Negative) Urine Nitrite Negative (Negative) Urine Bilirubin Negative (Negative) Urine Urobilinogen 2.0 (<2.0) mg/dL Ur Leukocyte Esterase Negative (Negative) 02/28/23 02/28/23 02/28/23 Range/Units 08:05 08:05 08:05 WBC (3.8-10.6) k/uL RBC (3.80-5.40) m/uL Hgb (11.4-16.0) gm/dL Hct (34.0-46.0) % MCV (80.0-100.0) fL MCH (25.0-35.0) pg MCHC (31.0-37.0) g/dL RDW (11.5-15.5) % Plt Count (150-450) k/uL MPV Neutrophils % % Lymphocytes % % Monocytes % % Eosinophils % % Basophils % % Neutrophils # (1.3-7.7) k/uL Lymphocytes # (1.0-4.8) k/uL Monocytes # (0-1.0) k/uL Eosinophils # (0-0.7) k/uL Basophils # (0-0.2) k/uL PT (10.0-12.5) sec INR (<1.2) APTT (22.0-30.0) sec Sodium 139 (137-145) mmol/L Potassium 3.9 (3.5-5.1) mmol/L Chloride 102 (98-107) mmol/L Carbon Dioxide 26 (22-30) mmol/L Anion Gap 11 mmol/L BUN 6 L (7-17) mg/dL Creatinine 0.60 (0.52-1.04) mg/dL Est GFR (CKD-EPI)AfAm >90 (>60 ml/min/1.73 sqM) Est GFR (CKD-EPI)NonAf >90 (>60 ml/min/1.73 sqM) Glucose 136 H (74-99) mg/dL Plasma Lactic Acid Moy 1.6 (0.7-2.0) mmol/L Calcium 9.3 (8.4-10.2) mg/dL Total Bilirubin 1.0 (0.2-1.3) mg/dL AST 34 (14-36) U/L ALT 52 H (4-34) U/L Alkaline Phosphatase 128 H (38-126) U/L Troponin I <0.012 (0.000-0.034) ng/mL Total Protein 7.8 (6.3-8.2) g/dL Albumin 4.2 (3.5-5.0) g/dL Amylase 76 (30-110) U/L Lipase 185 (23-300) U/L Urine Color Urine Appearance (Clear) Urine pH (5.0-8.0) Ur Specific [place] (1.001-1.035) Urine Protein (Negative) Urine Glucose (UA) (Negative) Urine Ketones (Negative) Urine Blood (Negative) Urine Nitrite (Negative) Urine Bilirubin (Negative) Urine Urobilinogen (<2.0) mg/dL Ur Leukocyte Esterase (Negative) Disposition Clinical Impression: Abdominal pain Disposition: HOME SELF-CARE Condition: Fair Instructions (If sedation given, give patient instructions): Abdominal Pain (ED) Is patient prescribed a controlled substance at d/c from ED?: No Referrals: Julian Browne DO [Primary Care Provider] - 1-2 days Time of Disposition: 09:55
[2023-02-28 08:00] VITALS: RESP 20
[2023-02-28 08:34] LABS: Basophils % (A) 0 %; Eosinophils # (A) 0.2 k/uL (0-0.7); Eosinophils % (A) 1 %; HCT 43.9 % (34.0-46.0); HGB 14.2 gm/dL (11.4-16.0); Lymphocytes # (A) 2.2 k/uL (1.0-4.8); Lymphocytes % (A) 17 %; MCH 29.6 pg (25.0-35.0); MCHC 32.3 g/dL (31.0-37.0); MCV 91.5 fL (80.0-100.0); Mean Platelet Volume 8.3; Monocytes # (A) 0.8 k/uL (0-1.0); Monocytes % (A) 6 %; Neutrophils % (A) 76 %; Platelet Count 367 k/uL (150-450); RDW 12.9 % (11.5-15.5); WBC 13.2 k/uL (3.8-10.6)
--- NOTE | 2023-02-28 08:38 | XR ---
KUB HISTORY: Abdominal pain and constipation. COMPARISON: None TECHNIQUE: 2 upright views the abdomen obtained. FINDINGS: There is a lap band device. The lung bases are clear. There is no free intraperitoneal air. The bowel gas pattern is nonspecific and there is no evidence of obstruction. There are no suspicious abdominal or pelvic calcifications. The osseous structures are intact. IMPRESSION: 1. Lap band device. 2. Nonspecific abdomen without evidence of free air or obstruction.
[2023-02-28 08:45] LABS: ALT 52 U/L (4-34); AST 34 U/L (14-36); African American GFR (CKD) >90 (>60 ml/min/1.73 sqM); Albumin 4.2 g/dL (3.5-5.0); Alkaline Phosphatase 128 U/L (38-126); Amylase 76 U/L (30-110); Anion Gap 11 mmol/L; Blood Urea Nitrogen 6 mg/dL (7-17); Calcium 9.3 mg/dL (8.4-10.2); Carbon Dioxide 26 mmol/L (22-30); Chloride 102 mmol/L (98-107); Glucose 136 mg/dL (74-99); Lipase 185 U/L (23-300); Non-African American GFR(CKD) >90 (>60 ml/min/1.73 sqM); Potassium 3.9 mmol/L (3.5-5.1); Sodium 139 mmol/L (137-145); Total Protein 7.8 g/dL (6.3-8.2)
[2023-02-28 08:49] LABS: Appearance,Urine Clear (Clear); Bilirubin,Urine Negative (Negative); Blood,Urine Negative (Negative); Color,Urine Yellow; Glucose,Urine (UA) Negative (Negative); INR 0.9 (<1.2); Ketones,Urine Negative (Negative); Leukocyte Esterase,Urine Negative (Negative); Nitrite,Urine Negative (Negative); Partial Thromboplastin Time 25.9 sec (22.0-30.0); Protein,Urine Negative (Negative); Prothrombin Time 10.5 sec (10.0-12.5); Specific Gravity,Urine 1.016 (1.001-1.035)
--- NOTE | 2023-02-28 09:53 | US ---
EXAMINATION TYPE: US gallbladder DATE OF EXAM: 02/28/2023 COMPARISON: CT CLINICAL INDICATION: Female, 67 years old with history of ruq pain; ABD pain TECHNIQUE: Multiple sonographic images of the right upper quadrant are obtained. FINDINGS: EXAM MEASUREMENTS: Liver Length: 16.3 cm Gallbladder Wall: 0.2 cm CBD: 0.4 cm Right Kidney: 10.6 x 4.6 x 5.0 cm CONSUMER ATTORNEY NOTES: Pancreas: wnl, tail obscured by overlying bowel gas Liver: Visualized mostly intercostally, visualized portions appeared wnl Gallbladder: wnl Evidence for sonographic Coronado's sign: NO CBD: wnl Right Kidney: Cystic lesion mid= 1.4 cm, no evidence of hydro IMPRESSION: 1. No abnormality of the gallbladder or biliary tree. 2. Partial evaluation of the pancreas. Visualized portions normal. 3. Incidental note is made of a right renal cyst but no right renal calcification or hydronephrosis.
[2023-02-28 11:05] VITALS: BP 155/98
== END 2023-02-28 11:10 | disposition home or self-care (01) ==
LOC: EC 07:29
DX: R10.30 Lower abdominal pain, unspecified (principal); R10.11 Right upper quadrant pain; D72.829 Elevated white blood cell count, unspecified; R74.01 Elevation of levels of liver transaminase levels; J44.9 Chronic obstructive pulmonary disease, unspecified; F32.A Depression, unspecified; F41.9 Anxiety disorder, unspecified; Z79.51 Long term (current) use of inhaled steroids; Z79.899 Other long term (current) drug therapy; Z87.891 Personal history of nicotine dependence
CPT/HCPCS: 36415; 93005; 80053; 82150; 83605; 83690; 84484; 85025; 85610; 85730; 81003; 74018; 76705; 99285; 96374; 96375 ×2; 96361; J2405; C9113; J1170

== ENCOUNTER 2023-07-06 06:53 | Day surgery (SDC) | payer MEDICARE ==
[2023-07-06] MEDS: LIDOCAINE 1% (10MG/ML) FOR IV START INTRADERMA PRN (07:29)
[2023-07-06] MEDS: LACTATED RINGERS 1,000 ML IV SCH (07:29)
[2023-07-06 07:51] VITALS: RESP 16; TEMP 97.1
[2023-07-06] MEDS ORDERED: PROPOFOL 10 MG/ML 20 ML VIAL IV ONE (07:59)
[2023-07-06] MEDS ORDERED: LIDOCAINE 1% INJ 10MG/ML (20 ML MDV) ONE (07:59)
--- NOTE | 2023-07-06 08:05 | P.GSHP ---
History of Present Illness H&P Date: 07/06/23 Chief Complaint: Abdominal pain, change in bowel habits 67-year-old female here for upper and lower endoscopy. Last colonoscopy almost 6 years ago. She had a tubular adenoma at that time. Patient has had upper abdominal pain and was having frequent vomiting. Her vomiting improved after emptying her band. Abdominal pain issues have improved somewhat as well. No GERD symptoms. Past Medical History Past Medical History: COPD Additional Past Medical History / Comment(s): HAS LEAK IN LAPBAND-SEEN BY JASON new lap band placed.- right now deflated History of Any Multi-Drug Resistant Organisms: None Reported Past Surgical History: Bariatric Surgery, Section Additional Past Surgical History / Comment(s): lap band 2009, 2019. COLONOSCOPY. C-SEC X 2 Past Anesthesia/Blood Transfusion Reactions: No Reported Reaction Smoking Status: Former smoker - Past Family History Mother Family Medical History: Cancer Additional Family Medical History / Comment(s): LUNG AND STOMACH Medications and Allergies Home Medications Medication Instructions Recorded Confirmed Type Beclomethasone Dipropionate [Qvar 2 puff INHALATION RT-BID 03/29/18 07/01/23 History 40 mcg Redihaler] Eszopiclone [Lunesta] 1 mg PO HS PRN 07/20/22 07/01/23 History ALPRAZolam [Xanax] 0.5 mg PO TID PRN 02/04/23 07/01/23 History Tiotropium 2.5 Mcg/Puff [Spiriva 1 puff INHALATION RT-DAILY 02/04/23 07/01/23 History Respimat 2.5 Mcg] Venlafaxine HCl [Effexor XR] 175 mg PO DAILY 02/04/23 07/01/23 History ARIPiprazole [Aripiprazole] 5 mg PO DAILY 07/01/23 07/01/23 History Unk Fish Oil 1 tab PO DAILY 07/01/23 07/01/23 History Unk Motrin 1 tab PO DIRECTED PRN 07/01/23 07/01/23 History Unk Multi Vitamin 1 tab PO DAILY 07/01/23 07/01/23 History Allergies Allergy/AdvReac Type Severity Reaction Status Date / Time No Known Allergies Allergy Verified 07/06/23 07:18 Surgical - Exam Vital Signs Temp Pulse Resp BP Pulse Ox 97.1 F L 92 16 139/67 95 07/06/23 07:25 07/06/23 07:25 07/06/23 07:25 07/06/23 07:25 07/06/23 07:25 Physical exam: General: Well-developed, well-nourished HEENT: Normocephalic, sclerae nonicteric Abdomen: Nontender, nondistended Extremities: No edema Neuro: Alert and oriented Assessment and Plan (1) Change in bowel habits Narrative/Plan: Will proceed with upper and lower endoscopy Current Visit: Yes Status: Acute Code(s): R19.4 - CHANGE IN BOWEL HABIT SNOMED Code(s): 91092000
--- NOTE | 2023-07-06 08:23 | P.PCN ---
Date of Procedure: 07/06/23 Procedure(s) Performed: PREOPERATIVE DIAGNOSIS: Epigastric pain, change in bowel habits POSTOPERATIVE DIAGNOSIS: Gastritis, diverticulosis PROCEDURE: 1. EGD with biopsy 2. Colonoscopy ANESTHESIA: MAC SURGEON: Donte Felix M.D. SPECIMENS: Antrum ENDOSCOPIC PROCEDURE: The patient was on the endoscopy table in the left decubitus position. The Olympus gastroscope was inserted into the oropharynx and passed under direct visualization to the region of the third portion of the duodenum. From that point the scope was slowly withdrawn inspecting all surfaces carefully. There were no neoplastic inflammatory or polypoid lesions throughout the duodenum. The pylorus was widely patent. The stomach was carefully inspected. There was gastritis present. A biopsy of the antrum took place to rule out H. pylori. Retroflexion revealed a normal Lap-Band plication. There was no evidence of erosion or prolapse. The pouch was appropriately sized. The esophagus was then carefully examined. There were no neoplastic inflammatory or polypoid lesions throughout the visualized esophagus. The patient was kept on the endoscopy table in the left decubitus position. The Olympus colonoscope was inserted into the anus and passed under direct visualization to the base of the cecum. The appendiceal orifice was visualized. From that point the scope was slowly withdrawn inspecting all surfaces carefully. There were no neoplastic inflammatory or polypoid lesions throughout the cecum, ascending, transverse, descending, sigmoid and rectum. There was mild left-sided diverticulosis noted. Digital rectal examination was normal. The patient was taken to the recovery room in stable condition per anesthesia guidelines. RECOMMENDATIONS: Resume diet. Follow-up bariatric clinic for band adjustment.
[2023-07-06 08:48] VITALS: BP 131/73
[2023-07-06 08:49] VITALS: PULSE 75
== END 2023-07-06 08:57 | disposition home or self-care (01) ==
LOC: ORWHC2ENDO 06:53
PROVIDERS: ATTEND Surgery
DX: K29.50 Unspecified chronic gastritis without bleeding (principal); B96.81 Helicobacter pylori [H. pylori] as the cause of diseases classified elsewhere; K57.30 Diverticulosis of large intestine without perforation or abscess without bleeding; J44.9 Chronic obstructive pulmonary disease, unspecified; Z79.51 Long term (current) use of inhaled steroids; Z87.891 Personal history of nicotine dependence; Z98.84 Bariatric surgery status; Z79.899 Other long term (current) drug therapy
CPT/HCPCS: 88305; 88342; 45378; 43239; J2001; J2704

== ENCOUNTER → 2024-01-04 | Outpatient (CLI) | payer MEDICARE ==
--- NOTE | 2024-01-07 12:43 | MM ---
Reason for Exam: Screening (asymptomatic). Last screening mammogram was performed 12 month(s) ago. Patient History: Menarche at age 13. First Full-Term at age 30. Postmenopausal. Progesterone, starting at age 61 for 2 years. Benign Excisional Biopsy on the right side. Risk Values: Marcela 5 year model risk: 2.2%. NCI Lifetime model risk: 7.6%. Prior Study Comparison: 11/14/2021 Bilateral MG screening mammo w CAD, [facility]. 12/22/2022 Bilateral MG 3D screening mammo w/cad, [facility]. 12/29/2022 Bilateral MG 3D work up w/cad [facility], [facility]. Tissue Density: The breasts are heterogeneously dense, which may obscure small masses. Findings: Analyzed By CAD. Unchanged bilateral density. Unchanged scattered and grouped round and punctate calcifications. There is no suspicious group of microcalcifications or new suspicious mass in either breast. Overall Assessment: Benign, BI-RAD 2 Management: Screening Mammogram of both breasts in 1 year. . Patient should continue monthly self-breast exams. A clinical breast exam by your physician is recommended on an annual basis. This exam should not preclude additional follow-up of suspicious palpable abnormalities. Note on Marcela scores and lifetime risk: 1. A Marcela score greater than 3% is considered moderate risk. If this is the case, consider specialist referral to assess eligibility for a risk reducing agent. 2. If overall lifetime risk for the development of breast cancer is 20% or higher, the patient may qualify for future screening with alternating mammogram and breast MRI. [facility], , 01/07/2024 12:40 PM. Electronically signed and approved by: Balwinder Rubio M.D. Radiologist
== END | disposition home or self-care (01) ==
LOC: RADMAMWWP 12:45
PROVIDERS: ATTEND Family Medicine
DX: Z12.31 Encounter for screening mammogram for malignant neoplasm of breast (principal); R92.333 Mammographic heterogeneous density, bilateral breasts; Z78.0 Asymptomatic menopausal state
CPT/HCPCS: 77063; 77067